=== PATIENT | female | born 1965 | race Two or more races ===

== ENCOUNTER 2016-09-09 12:08 | Emergency (ER) | payer MEDICAID | END 2016-09-09 13:20 | disposition left against medical advice (07) | LOC: EEVIPCON 12:08 | DX: Z53.21 Procedure and treatment not carried out due to patient leaving prior to being seen by health care provider (principal) ==

== ENCOUNTER 2016-11-16 10:15 | Inpatient (IN) | payer MEDICAID ==
[2016-11-16 10:39] LABS: % IMMATURE GRANULYOCYTES 0.2 % (0.0-1.1); ABSOLUTE IMMATURE GRANULOCYTES 0.01 10^3/uL (0.00-0.10); ADD DIFF? NO; ADD MORPH? NO; ADD SCAN? NO; ATYPICAL LYMPHOCYTE FLAG 30 (0-99); FRAGMENT RBC FLAG 0 (0-99); HEMATOCRIT 28.2 % (38.0-47.0); HEMOGLOBIN 9.6 g/dL (12.6-16.3); LEFT SHIFT FLG 0 (0-99); LIPEMIA HEMOLYSIS FLAG 90 (0-99); MEAN CELL HEMOGLOBIN 30.7 pg (27.9-34.1); MEAN CELL VOLUME 90.1 fL (81.5-99.8); MEAN PLATELET VOLUME 10.2 fL (8.7-11.7); PLATELET CLUMPS FLAG 20 (0-99); PLATELET COUNT 68 10^3/uL (150-400); RED BLOOD CELL COUNT 3.13 10^6/uL (4.18-5.33); RED CELL DISTRIBUTION WIDTH 16.6 % (11.5-15.2)
[2016-11-16 10:44] LABS: INR 1.5 (0.83-1.16); PROTIME(PATIENT) 18.1 SEC (12.0-15.0)
[2016-11-16 10:57] LABS: ALANINE AMINOTRANSFERASE 45 IU/L (9-52); ALBUMIN 2.5 g/dL (3.5-5.0); ALKALINE PHOSPHATASE 361 IU/L (38-126); ANION GAP 7 mEq/L (8-16); ASPARTATE AMINOTRANSFERASE 70 IU/L (14-46); BILIRUBIN,TOTAL 3.2 mg/dL (0.1-1.4); BILIRUBIN-CONJUGATED 1.8 mg/dL (0.0-0.5); BILIRUBIN-UNCONJUGATED 1.4 mg/dL (0.0-1.1); CALCIUM 8.1 mg/dL (8.5-10.4); CARBON DIOXIDE 20 mEq/l (22-31); CHLORIDE 108 mEq/L (97-110); CREATININE 0.5 mg/dL (0.6-1.0); GLOMERULAR FILTRATION RATE > 60; GLUCOSE 112 mg/dL (70-100); POTASSIUM 2.9 mEq/L (3.5-5.2); SODIUM 135 mEq/L (134-144); TOTAL PROTEIN 6.8 g/dL (6.3-8.2)
[2016-11-16] MEDS ORDERED: HYDROmorphONE/DILAUDID 1 MG/ML SYR IVP ONE (11:12)
--- NOTE | 2016-11-16 11:14 | EDPHY ---
H & P Time Seen by Provider: 11/16/16 10:32 HPI/ROS: Chief complaint. Abdominal pain HPI. 51-year-old female with abdominal pain and distention gradually worsening over the past several weeks. She has a history of pancreatitis and cirrhosis. Last paracentesis was 4 months ago. Denies fever, chest discomfort, trouble breathing. Pain in her abdomen is diffuse and feels like pressure and fullness. Hurts to walk. Patient also complains of burning on urination ROS Constitutional. no fever/chills, no weakness Eyes. no problems with vision ENT. no sore throat, no nasal drainage Cardiovascular. no chest pain Respiratory. no shortness of breath, no cough Abdominal. Abdominal pain and distension . no problems urinating MS. no calf pain/swelling, no neck/back pain, no joint pain Skin. no rash Lymph. no swollen glands Neuro. no headache, no dizziness, no difficulty walking or with speech Past Medical/Surgical History: Past medical history is significant for alcoholism, cirrhosis, ascites, hypertension, pancreatitis, hep C, seizure disorder Social History: Single, daily smoker, denies recent alcohol Smoking Status: Current every day smoker Physical Exam: General Appearance: Alert well-developed female moderate distress vital signs significant for heart rate 110 Eyes: Pupils equal and round no pallor or injection. ENT, Mouth: Mucous membranes are moist. Respiratory: There are no retractions, lungs are clear to auscultation. Cardiovascular: Regular rate and rhythm. Gastrointestinal: Abdomen is distended and diffusely tender. There is ascites. Normal bowel sounds. Neurological: Awake and alert, sensory and motor exams grossly normal. Skin: Warm and dry, no rashes. Musculoskeletal: Neck is supple nontender. Extremities symmetrical, full range of motion. Psychiatric: Patient is oriented X 3, there is no agitation. Constitutional: Initial Vital Signs Temperature (C) 36.8 C 11/16/16 10:27 Heart Rate 110 H 11/16/16 10:27 Respiratory Rate 18 11/16/16 10:27 Blood Pressure 175/109 H 11/16/16 10:27 O2 Sat (%) 98 11/16/16 10:27 O2 Delivery Mode Room Air Allergies/Adverse Reactions: codeine Allergy (Severe, Verified 09/09/16 12:44) Other-Enter Comments Home Medications: Medication Instructions Recorded Hydrocortisone 2.5% 1 xi TP BID 03/24/16 [Hydrocortisone 2.5% cream (*)] Zinc Oxide [Desitin] 1 xi TP .3-4X/DAY 03/24/16 Folic Acid [Folic Acid 1 MG (*)] 1 mg PO DAILY #0 tab 04/08/16 Multivitamins [Multivitamin (*)] 1 each PO DAILY #0 tab 04/08/16 Furosemide [Lasix 40 MG (*)] 40 mg PO BID@0900,1500 #0 tab 04/11/16 Spironolactone 100 mg PO DAILY #30 tablet 04/11/16 levETIRAcetam [Keppra 500 mg (*)] 500 mg PO BID #60 tab 04/11/16 Rifaximin [Xifaxan] 550 mg PO BID 04/13/16 Citalopram Hydrobromide [Celexa] 20 mg PO DAILY 11/16/16 Lactulose [Cephulac 20 gm/30 ml 20 gm PO Q2D@09,21 11/16/16 oral soln (*)] Omeprazole 40 mg PO DAILY 11/16/16 Potassium Cl [Klor-Con 20 meq (*)] 40 meq PO DAILY 11/16/16 Medical Decision Making Procedures: IV normal saline For magnesium sulfate intravenously. Potassium by mouth The wall I consulted and discussed the case with Dr. Grey, hospitalist, who agrees to the admission On re-evaluation the patient remained stable. She and I discussed lab results. We discussed treatment plan including recommendation for admission and paracentesis. She expresses understanding and agreement ED Course/Re-evaluation: I consulted and discussed case with Dr. Guthrie, hospitalist, who agrees to the admission Patient and I discussed laboratory results, treatment plan including need for admission and further evaluation. She expresses understanding and agreement Magnesium sulfate 1 g IV, potassium chloride by mouth Differential Diagnosis: Clearly the patient has ascites that is gradually worsening. She also has a urinary tract infection. Patient also has significant hypokalemia. - Data Points Laboratory Results: Laboratory Results 11/16/16 10:20 11/16/16 10:20 11/16/16 11/16/16 11/16/16 10:20 10:20 10:20 WBC RBC Hgb Hct MCV MCH MCHC RDW Plt Count MPV Neut % (Auto) Lymph % (Auto) [place] % (Auto) Eos % (Auto) Baso % (Auto) Nucleat RBC Rel Count Absolute Neuts (auto) Absolute Lymphs (auto) Absolute Monos (auto) Absolute Eos (auto) Absolute Basos (auto) Absolute Nucleated RBC Immature Gran % Immature Gran # PT INR APTT Sodium 135 mEq/L mEq/L (134-144) Potassium 2.9 mEq/L L mEq/L (3.5-5.2) Chloride 108 mEq/L mEq/L (97-110) Carbon Dioxide 20 mEq/l L mEq/l (22-31) Anion Gap 7 mEq/L L mEq/L (8-16) BUN 9 mg/dL mg/dL (7-23) Creatinine 0.5 mg/dL L mg/dL (0.6-1.0) Estimated GFR > 60 Glucose 112 mg/dL H mg/dL (70-100) Calcium 8.1 mg/dL L mg/dL (8.5-10.4) Magnesium 1.7 mg/dL mg/dL (1.6-2.3) Total Bilirubin 3.2 mg/dL H mg/dL (0.1-1.4) Conjugated Bilirubin 1.8 mg/dL H mg/dL (0.0-0.5) Unconjugated Bilirubin 1.4 mg/dL H mg/dL (0.0-1.1) AST 70 IU/L H IU/L (14-46) ALT 45 IU/L IU/L (9-52) Alkaline Phosphatase 361 IU/L H IU/L (38-126) Total Protein 6.8 g/dL g/dL (6.3-8.2) Albumin 2.5 g/dL L g/dL (3.5-5.0) Lipase 308.0 IU/L H IU/L (23-300) Ethyl Alcohol 24 mg/dL H mg/dL (0-10) 11/16/16 11/16/16 10:20 10:20 WBC 4.13 10^3/uL 10^3/uL (3.80-9.50) RBC 3.13 10^6/uL L 10^6/uL (4.18-5.33) Hgb 9.6 g/dL L g/dL (12.6-16.3) Hct 28.2 % L % (38.0-47.0) MCV 90.1 fL fL (81.5-99.8) MCH 30.7 pg pg (27.9-34.1) MCHC 34.0 g/dL g/dL (32.4-36.7) RDW 16.6 % H % (11.5-15.2) Plt Count 68 10^3/uL L 10^3/uL (150-400) MPV 10.2 fL fL (8.7-11.7) Neut % (Auto) 72.5 % % (39.3-74.2) Lymph % (Auto) 11.9 % L % (15.0-45.0) [place] % (Auto) 9.9 % % (4.5-13.0) Eos % (Auto) 4.8 % % (0.6-7.6) Baso % (Auto) 0.7 % % (0.3-1.7) Nucleat RBC Rel Count 0.0 % % (0.0-0.2) Absolute Neuts (auto) 2.99 10^3/uL 10^3/uL (1.70-6.50) Absolute Lymphs (auto) 0.49 10^3/uL L 10^3/uL (1.00-3.00) Absolute Monos (auto) 0.41 10^3/uL 10^3/uL (0.30-0.80) Absolute Eos (auto) 0.20 10^3/uL 10^3/uL (0.03-0.40) Absolute Basos (auto) 0.03 10^3/uL 10^3/uL (0.02-0.10) Absolute Nucleated RBC 0.00 10^3/uL 10^3/uL (0-0.01) Immature Gran % 0.2 % % (0.0-1.1) Immature Gran # 0.01 10^3/uL 10^3/uL (0.00-0.10) PT 18.1 SEC H SEC (12.0-15.0) INR 1.50 H (0.83-1.16) APTT 32.0 SEC SEC (23.0-38.0) Sodium Potassium Chloride Carbon Dioxide Anion Gap BUN Creatinine Estimated GFR Glucose Calcium Magnesium Total Bilirubin Conjugated Bilirubin Unconjugated Bilirubin AST ALT Alkaline Phosphatase Total Protein Albumin Lipase Ethyl Alcohol Medications Given: Discontinued Medications Hydromorphone HCl (Dilaudid) 1 mg IVP EDNOW ONE Stop: 11/16/16 11:13 Last Admin: 11/16/16 12:21 Dose: 0.5 mg Magnesium Sulfate/Dextrose (Magnesium Sulf 1 Gm (Premix)) 100 mls @ 100 mls/hr IV EDNOW ONE Stop: 11/16/16 12:29 Last Admin: 11/16/16 12:11 Dose: 100 mls Potassium Chloride (Klor Packets) 20 meq PO EDNOW ONE Stop: 11/16/16 11:31 Last Admin: 11/16/16 12:10 Dose: 20 meq Departure - Departure Disposition: [facility] Inpatient Acute Clinical Impression: Ascites Qualifiers: Ascites type: due to alcoholic cirrhosis Qualified Code(s): K70.31 - Alcoholic cirrhosis of liver with ascites Condition: Fair
[2016-11-16] MEDS ORDERED: POTASSIUM CL 20 MEQ PKT PO ONE (11:30)
[2016-11-16] MEDS ORDERED: MAGNESIUM SULF 1 GM/DEXTROSE 100 ML IV ONE (11:30)
[2016-11-16 11:31] LABS: ETHANOL SERUM 24 mg/dL (0-10)
[2016-11-16 12:31] LABS: COLOR AMBER; LEUKOCYTE ESTERASE,URINE 2+ (NEGATIVE); NITRITE,URINE POSITIVE (NEGATIVE)
[2016-11-16 12:36] LABS: BACTERIA 4+ /hpf (NONE SEEN); MUCUS 1+ /lpf (NONE-1+); RBC,URINE 50-182 /hpf (0-3); WBC,URINE 50-182 /hpf (0-3)
[2016-11-16] MEDS ORDERED: ZINC OXIDE TP SCH (13:15)
[2016-11-16] MEDS ORDERED: ONDANSETRON DISINTEGRATING 4 MG TAB PO PRN (13:47)
[2016-11-16] MEDS ORDERED: HYDROmorphONE/DILAUDID 1 MG/ML SYR IVP PRN (13:47)
[2016-11-16] MEDS ORDERED: ONDANSETRON 4 MG/2 ML VIAL IVP PRN (13:47)
[2016-11-16] MEDS ORDERED: oxyCODONE IR 5 MG TAB PO PRN (13:47)
[2016-11-16] MEDS ORDERED: NA BICARBONATE 50 MEQ/50 ML VIAL ONE (14:19)
[2016-11-16] MEDS: HYDROmorphONE/DILAUDID 2 MG TAB PO PRN ×2 (15:10→20:29)
--- NOTE | 2016-11-16 15:17 | GHP ---
[f rep st] HISTORY AND PHYSICAL DATE OF ADMISSION: 11/16/2016 CHIEF COMPLAINT: Abdominal pain. HISTORY OF PRESENT ILLNESS: The patient is a 51-year-old alcoholic with a history significant for a lcoholic liver disease and recurrent cirrhosis. She comes in with increasing abdominal pain for 2 d ays, associated with fevers and chills. She has had increasing abdominal girth over the past 2 shala hs, despite saying she has been compliant with all of her medications. She denies any chest pain. She has a little bit of shortness of breath due to her abdominal girth and some cough that has been present for 4 months. She denies any changes in her BM. She has had a little bit of urinary burnin g, but no back pain. She denies any new rash. No new joint pains. Her swelling is better than usu al on her lower extremities. No headache, vision, hearing, speech or swallowing issues. REVIEW OF SYSTEMS: A 10-point review of systems was done and is negative, except as stated in the H PI. PAST MEDICAL HISTORY: 1. Alcoholic cirrhosis. 2. Ongoing alcoholism with alcohol use. 3. History of SBP. 4. History of seizure disorder. 5. Pancytopenia secondary to alcohol use. 6. Depression. 7. PTSD. PAST SURGICAL HISTORY: Includes cholecystectomy, x5, appendectomy. FAMILY HISTORY: Mother with dementia. Father is . SOCIAL HISTORY: She is currently living with her mother but says this cannot last, and she is hopin g to move out and get housing. She walks with the use of a cane. She continues to drink but says h as cut out the hard liquor and only drinks beer occasionally. Despite having a positive alcohol lev el, she says her last beer was 2 days ago. She occasionally smokes tobacco and marijuana. She curr ently goes to the [facility] but plans on switching to [facility] with Dr. Casillas. CURRENT MEDICATIONS: Omeprazole, potassium, Keppra, spironolactone, , multivitamin, lactu lose, hydrocortisone cream, Lasix, folic acid, and citalopram. ALLERGIES: To codeine. PHYSICAL EXAMINATION: VITAL SIGNS: Afebrile. Heart rate 100. Blood pressure 151/94. Respiration s 18. She is 96% on room air. GENERAL: She is a very pleasant, 51-year-old non-white woman in no obvious distress. She is alert and oriented. HEENT: Sclerae slightly icteric. Pupils are equal. Extraocular movements intact. Mucous membranes are dry. NECK: Supple. She has a left EJ in. HE ART: Regular and tachycardic with a systolic murmur. LUNGS: Clear bilaterally, with decreased pedro luis ath sounds at the bases. ABDOMEN: Distended and bulging. She does have some scars on her abdomen and it is diffusely tender, without significant rebound or guarding. EXTREMITIES: Trace edema, paul ateral lower extremities. SKIN: Intact. No rash. MUSCULOSKELETAL: No joint deformities. No obv ious effusions. NEUROLOGIC: Her speech is fluent. She is moving all 4 extremities. LABORATORY DATA: CBC shows a white count of 4.1, hemoglobin 9.6, with a platelet count of 68. Chemistry: Sodium 135, potassium 2.9, chloride 108, 20, BUN 9, with a creatinine of 0.5. LFTs show a total bili of 3.2, AST of 70, with an ALT of 45, alk phos of 361. Troponin 308. Urinalysis does show pyuria and hematuria. ASSESSMENT AND PLAN: 51-year-old presents with abdominal pain, increasing ascites, as well as evide nce of urinary tract infection. 1. Abdominal pain, ascites, have to rule out spontaneous bacterial peritonitis: Will set her up fo r an ultrasound-guided paracentesis, both diagnostic and therapeutic. Will likely start her on empi bradley ceftriaxone after tap done. 2. Possible urinary tract infection causing symptoms: Will start her on ceftriaxone, culture urine . 3. Alcoholism: Patient states she has cut down but has not stopped. Will have ongoing discussions regarding complete abstinence. 4. Alcoholic cirrhosis: Continue her usual medications. She does not appear encephalopathic, and her fluid status, other than her ascites, is actually quite good. Continue her diuretics as prescri bed. 5. Seizure disorder: Continue Keppra. 6. Pancytopenia, fairly stable: Continue to monitor while she is here. 7. Depression: Continue her SSRI. 8. DVT prophylaxis: Will place SCDs. Patient's platelet count too low to start chemical prophylax is. Copy requested to: Dr. [facility] /[id number]/MODL
[2016-11-16 16:36] LABS: GLUCOSE, PERITONEAL FLUID 110 mg/dL (55-113)
[2016-11-16] MEDS: FUROSEMIDE 40 MG TAB PO SCH (16:41)
[2016-11-16] MEDS: ZINC OXIDE 56.7 GM OINTTUBE TP SCH ×2 (16:45→20:21)
[2016-11-16] MEDS ORDERED: diphenhydrAMINE 25 MG CAP PO ONE (20:04)
[2016-11-16] MEDS: RIFAXIMIN 550 MG TAB PO SCH (20:19)
[2016-11-16] MEDS: LACTULOSE 20 GM/30 ML UDCUP PO SCH (20:20)
[2016-11-16] MEDS: levETIRAcetam 500 MG TAB PO SCH (20:20)
[2016-11-16] MEDS: HYDROCORTISONE 2.5% 30 GM CRTUBE TP SCH (20:21)
[2016-11-17] MEDS: HYDROmorphONE/DILAUDID 2 MG TAB PO PRN ×3 (04:46→20:43)
[2016-11-17] MEDS: ZINC OXIDE 56.7 GM OINTTUBE TP SCH ×4 (04:50→22:16)
[2016-11-17 05:43] LABS: % IMMATURE GRANULYOCYTES 0.3 % (0.0-1.1); ABSOLUTE IMMATURE GRANULOCYTES 0.01 10^3/uL (0.00-0.10); ADD DIFF? NO; ADD MORPH? NO; ADD SCAN? NO; ATYPICAL LYMPHOCYTE FLAG 30 (0-99); FRAGMENT RBC FLAG 0 (0-99); HEMATOCRIT 29.7 % (38.0-47.0); HEMOGLOBIN 9.8 g/dL (12.6-16.3); LEFT SHIFT FLG 0 (0-99); LIPEMIA HEMOLYSIS FLAG 80 (0-99); MEAN CELL HEMOGLOBIN 30.9 pg (27.9-34.1); MEAN CELL VOLUME 93.7 fL (81.5-99.8); MEAN PLATELET VOLUME 9.9 fL (8.7-11.7); PLATELET CLUMPS FLAG 0 (0-99); PLATELET COUNT 65 10^3/uL (150-400); RED BLOOD CELL COUNT 3.17 10^6/uL (4.18-5.33); RED CELL DISTRIBUTION WIDTH 16.5 % (11.5-15.2)
[2016-11-17 05:49] LABS: ALANINE AMINOTRANSFERASE 43 IU/L (9-52); ALBUMIN 2.5 g/dL (3.5-5.0); ALKALINE PHOSPHATASE 319 IU/L (38-126); ANION GAP 8 mEq/L (8-16); ASPARTATE AMINOTRANSFERASE 67 IU/L (14-46); BILIRUBIN,TOTAL 3.1 mg/dL (0.1-1.4); CALCIUM 7.6 mg/dL (8.5-10.4); CARBON DIOXIDE 21 mEq/l (22-31); CHLORIDE 108 mEq/L (97-110); CREATININE 0.6 mg/dL (0.6-1.0); GLOMERULAR FILTRATION RATE > 60; GLUCOSE 125 mg/dL (70-100); POTASSIUM 2.8 mEq/L (3.5-5.2); SODIUM 137 mEq/L (134-144); TOTAL PROTEIN 6.7 g/dL (6.3-8.2)
[2016-11-17 05:56] LABS: BILIRUBIN-CONJUGATED 1.8 mg/dL (0.0-0.5); BILIRUBIN-UNCONJUGATED 1.3 mg/dL (0.0-1.1)
[2016-11-17] MEDS: CITALOPRAM 20 MG TAB PO SCH (08:48)
[2016-11-17] MEDS: FOLIC ACID 1 MG TAB PO SCH (08:49)
[2016-11-17] MEDS: SPIRONOLACTONE 100 MG TAB PO SCH (08:49)
[2016-11-17] MEDS: PANTOPRAZOLE SODIUM 40 MG TAB PO SCH (08:50)
[2016-11-17] MEDS: FUROSEMIDE 40 MG TAB PO SCH ×2 (08:50→16:19)
[2016-11-17] MEDS: RIFAXIMIN 550 MG TAB PO SCH ×2 (08:51→20:42)
[2016-11-17] MEDS: levETIRAcetam 500 MG TAB PO SCH ×2 (08:51→20:42)
[2016-11-17] MEDS: MULTIVITAMINS 1 EACH TAB PO SCH (08:51)
[2016-11-17] MEDS: POTASSIUM CL 20 MEQ TAB PO SCH (08:51)
[2016-11-17] MEDS: HYDROCORTISONE 2.5% 30 GM CRTUBE TP SCH ×2 (08:59→20:46)
[2016-11-17] MEDS ORDERED: NON-FORMULARY NEW DRUG (Omeprazole [Omeprazole] 40 MG) PO SCH (09:00)
[2016-11-17] MEDS ORDERED: CITALOPRAM HYDROBROMIDE 20 MG PO SCH (09:00)
[2016-11-17] MEDS ORDERED: ONDANSETRON DISINTEGRATING 4 MG TAB PO PRN (10:51)
[2016-11-17] MEDS ORDERED: ONDANSETRON 4 MG/2 ML VIAL IVP PRN (10:51)
--- NOTE | 2016-11-17 10:57 | HOSPPROG ---
Hospitalist Progress Note Assessment/Plan: 51-year-old with alcoholic liver disease and cirrhosis is admitted with abdominal pain and marked ascites. She is status post paracentesis and feels better. She also has evidence of a urinary tract infection. # abdominal pain: Status post paracentesis for 2400. No evidence of SBP on evaluation. * Continue diuretics * Follow symptoms # UTI patient with dysuria and pyuria. Will continue treatment and await cultures. # alcoholism with alcoholic liver disease: Has been compliant with her medications and decreased her alcohol intake but still continues to drink. * No evidence of withdrawal * Continue discussing abstinence # deconditioning, PT OT # DVT prophylaxis. Patient not great candidate due to severe thrombocytopenia Subjective: Patient feeling better today. Still with some mild abdominal pain. Objective: Vital Signs Temp Pulse Resp BP Pulse Ox 36.8 C 95 16 142/84 H 91 L 11/17/16 08:00 11/17/16 08:00 11/17/16 08:00 11/17/16 08:00 11/17/16 08:00 Microbiology 11/16/16 15:50 Gram Stain - Final Peritoneal Fluid - Aspirate Laboratory Results 11/17/16 04:45 11/17/16 05:15 11/16/16 11/17/16 11/18/16 05:59 05:59 05:59 Intake Total 750 Balance 750 PT 18.1 SEC (12.0-15.0) H 11/16/16 10:20 INR 1.50 (0.83-1.16) H 11/16/16 10:20 - Physical Exam Constitutional: chronically ill appearing, uncomfortable Eyes: PERRL, EOMI, icteric sclera Ears, Nose, Mouth, Throat: moist mucous membranes Cardiovascular: regular rate and rhythym, no murmur, rub, or gallop Respiratory: no respiratory distress, no rales or rhonchi, reduced air movement (Bases) Gastrointestinal: normoactive bowel sounds, ascites, distension, No rebound Genitourinary: no bladder fullness Skin: warm, normal color Musculoskeletal: generalized weakness Neurologic: AAOx3, No facial droop Psychiatric: interacting appropriately, not anxious ICD10 Worksheet Patient Problems: Problems Problem Status Onset Ascites Acute Abdominal pain Acute Alcohol intoxication Acute Alcohol abuse Acute SBP (spontaneous bacterial peritonitis) Acute Alcoholic cirrhosis of liver with ascites Acute Pancytopenia Acute Alcohol use Acute Hematochezia Acute Delirium tremens Acute
[2016-11-17] MEDS ORDERED: PROTOCOL MAGNESIUM 1 DOSE IV PRN (11:29)
[2016-11-17] MEDS ORDERED: PROTOCOL POTASSIUM 1 DOSE MISC PRN (11:29)
[2016-11-17] MEDS ORDERED: POTASSIUM CL 20 MEQ TAB PO ONE (11:30)
[2016-11-17 12:42] LABS: POTASSIUM 2.9 mEq/L (3.5-5.2)
[2016-11-17 18:26] LABS: POTASSIUM 3.7 mEq/L (3.5-5.2)
[2016-11-17] MEDS ORDERED: POTASSIUM CL 10 MEQ TAB PO ONE (19:29)
[2016-11-17] MEDS: LACTULOSE 20 GM/30 ML UDCUP PO SCH (20:43)
[2016-11-18] MEDS ORDERED: LORazepam 2 MG/ML INJ IVP ONE (02:00)
[2016-11-18] MEDS: ZINC OXIDE 56.7 GM OINTTUBE TP SCH ×4 (05:05→21:00)
[2016-11-18 06:25] LABS: HEMATOCRIT 26.7 % (38.0-47.0); HEMOGLOBIN 8.8 g/dL (12.6-16.3); MEAN CELL HEMOGLOBIN 30.4 pg (27.9-34.1); MEAN CELL VOLUME 92.4 fL (81.5-99.8); RED BLOOD CELL COUNT 2.89 10^6/uL (4.18-5.33); RED CELL DISTRIBUTION WIDTH 16.3 % (11.5-15.2)
[2016-11-18 06:55] LABS: ALANINE AMINOTRANSFERASE 46 IU/L (9-52); ALBUMIN 2.3 g/dL (3.5-5.0); ALKALINE PHOSPHATASE 271 IU/L (38-126); ANION GAP 9 mEq/L (8-16); ASPARTATE AMINOTRANSFERASE 70 IU/L (14-46); BILIRUBIN,TOTAL 3.1 mg/dL (0.1-1.4); CALCIUM 7.9 mg/dL (8.5-10.4); CARBON DIOXIDE 22 mEq/l (22-31); CHLORIDE 105 mEq/L (97-110); CREATININE 0.7 mg/dL (0.6-1.0); GLOMERULAR FILTRATION RATE > 60; GLUCOSE 92 mg/dL (70-100); MAGNESIUM 1.3 mg/dL (1.6-2.3); POTASSIUM 3.5 mEq/L (3.5-5.2); SODIUM 136 mEq/L (134-144); TOTAL PROTEIN 6.3 g/dL (6.3-8.2)
[2016-11-18 07:01] LABS: BILIRUBIN-UNCONJUGATED 1.1 mg/dL (0.0-1.1)
[2016-11-18] MEDS: POTASSIUM CL 20 MEQ TAB PO SCH (08:12)
[2016-11-18] MEDS: FUROSEMIDE 40 MG TAB PO SCH ×2 (08:12→15:13)
[2016-11-18] MEDS: RIFAXIMIN 550 MG TAB PO SCH ×2 (08:12→20:51)
[2016-11-18] MEDS: PANTOPRAZOLE SODIUM 40 MG TAB PO SCH (08:13)
[2016-11-18] MEDS: SPIRONOLACTONE 100 MG TAB PO SCH (08:13)
[2016-11-18] MEDS: MULTIVITAMINS 1 EACH TAB PO SCH (08:13)
[2016-11-18] MEDS: FOLIC ACID 1 MG TAB PO SCH (08:13)
[2016-11-18] MEDS: CITALOPRAM 20 MG TAB PO SCH (08:13)
[2016-11-18] MEDS: levETIRAcetam 500 MG TAB PO SCH ×2 (08:14→20:51)
[2016-11-18] MEDS: LACTULOSE 20 GM/30 ML UDCUP PO SCH ×2 (08:14→20:51)
[2016-11-18] MEDS: HYDROCORTISONE 2.5% 30 GM CRTUBE TP SCH ×2 (08:20→20:52)
[2016-11-18] MEDS ORDERED: POTASSIUM CL 10 MEQ TAB PO ONE ×2 (10:00→23:26)
[2016-11-18] MEDS ORDERED: MAGNESIUM SULF 2 GM/WATER 50 ML IV ONE (10:01)
[2016-11-18] MEDS: HYDROmorphONE/DILAUDID 2 MG TAB PO PRN ×3 (10:57→22:23)
--- NOTE | 2016-11-18 13:59 | HOSPPROG ---
Hospitalist Progress Note Assessment/Plan: 51-year-old with alcoholic liver disease and cirrhosis is admitted with acute on chronic abdominal pain and marked ascites. She is status post paracentesis and feels better. She also has evidence of a urinary tract infection on UA with dysuria. # abdominal pain: Status post paracentesis for 2400. No evidence of SBP on evaluation. * Continue diuretics * Follow symptoms # UTI patient with dysuria and pyuria. Culture positive for ESBL which is sensitive to Levaquin * DC ceftriaxone and start Levaquin * Will watch patient overnight to see if some of her abdominal complaints improved with actual treatment of her UTI * Place patient on precaution # alcoholism with alcoholic liver disease: Has been compliant with her medications and decreased her alcohol intake but still continues to drink. * No evidence of withdrawal * Continue discussing abstinence # deconditioning, PT OT # DVT prophylaxis. Patient not great candidate due to severe thrombocytopenia Disposition: Patient still quite weak in needs another day or 2 of hospitalization before discharge. Would also like to see if her symptoms improve Levaquin. Case management working with patient on disposition she will either go home to her mom's house or go to the [facility]. The patient is reluctant to go to her mom's house, unfortunately she needs home care and they will likely not provide that if she goes to the [facility]. Subjective: Still with some abdominal discomfort unclear how much of this is acute or chronic. Had some dysuria yesterday not as much today. Ambulating with a walker typically she only has a cane at home Objective: Vital Signs Temp Pulse Resp BP Pulse Ox 36.6 C 91 14 135/80 H 96 11/18/16 11:09 11/18/16 11:09 11/18/16 11:09 11/18/16 11:09 11/18/16 11:09 Microbiology 11/16/16 15:50 Gram Stain - Final Peritoneal Fluid - Aspirate Laboratory Results 11/18/16 04:50 11/18/16 04:50 11/17/16 11/18/16 11/19/16 05:59 05:59 05:59 Intake Total 750 236 Balance 750 236 PT 18.1 SEC (12.0-15.0) H 11/16/16 10:20 INR 1.50 (0.83-1.16) H 11/16/16 10:20 - Physical Exam Constitutional: chronically ill appearing, uncomfortable Eyes: PERRL, anicteric sclera, EOMI Ears, Nose, Mouth, Throat: moist mucous membranes, ears appear normal Cardiovascular: regular rate and rhythym, no murmur, rub, or gallop Respiratory: no respiratory distress, no rales or rhonchi, clear to auscultation , reduced air movement (Bases) Gastrointestinal: normoactive bowel sounds, ascites, distension Genitourinary: no bladder fullness Skin: warm, No normal color (Lesa) Musculoskeletal: normal joint ROM, no joint effusions, generalized weakness Neurologic: AAOx3 Psychiatric: interacting appropriately, not anxious, not encephalopathic ICD10 Worksheet Patient Problems: Problems Problem Status Onset Ascites Acute Abdominal pain Acute Alcohol intoxication Acute Alcohol abuse Acute SBP (spontaneous bacterial peritonitis) Acute Alcoholic cirrhosis of liver with ascites Acute Pancytopenia Acute Alcohol use Acute Hematochezia Acute Delirium tremens Acute
[2016-11-18 17:44] LABS: POTASSIUM 3.6 mEq/L (3.5-5.2)
[2016-11-19] MEDS: HYDROmorphONE/DILAUDID 2 MG TAB PO PRN ×3 (02:30→14:42)
[2016-11-19 05:52] LABS: MAGNESIUM 1.5 mg/dL (1.6-2.3)
[2016-11-19] MEDS: levETIRAcetam 500 MG TAB PO SCH ×2 (08:34→21:48)
[2016-11-19] MEDS: FOLIC ACID 1 MG TAB PO SCH (08:35)
[2016-11-19] MEDS: ZINC OXIDE 56.7 GM OINTTUBE TP SCH ×4 (08:35→22:01)
[2016-11-19] MEDS: CITALOPRAM 20 MG TAB PO SCH (08:35)
[2016-11-19] MEDS: FUROSEMIDE 40 MG TAB PO SCH ×2 (08:36→14:36)
[2016-11-19] MEDS: SPIRONOLACTONE 100 MG TAB PO SCH (08:37)
[2016-11-19] MEDS: PANTOPRAZOLE SODIUM 40 MG TAB PO SCH (08:37)
[2016-11-19] MEDS: MULTIVITAMINS 1 EACH TAB PO SCH (08:37)
[2016-11-19] MEDS: RIFAXIMIN 550 MG TAB PO SCH ×2 (08:40→21:48)
[2016-11-19] MEDS: POTASSIUM CL 20 MEQ TAB PO SCH (08:41)
[2016-11-19] MEDS: HYDROCORTISONE 2.5% 30 GM CRTUBE TP SCH ×2 (08:42→22:01)
[2016-11-19] MEDS ORDERED: MAGNESIUM SULF 1 GM/DEXTROSE 100 ML IV ONE (09:00)
--- NOTE | 2016-11-19 17:11 | HOSPPROG ---
Hospitalist Progress Note Assessment/Plan: 51-year-old with alcoholic liver disease and cirrhosis is admitted with acute on chronic abdominal pain and marked ascites. She is status post paracentesis and feels better. She also has evidence of a urinary tract infection on UA with dysuria. # abdominal pain- Status post paracentesis for 2400. No evidence of SBP on evaluation. most recent CT abdomen( personally reviewed and interpreted) show hemorrhoids and splenomegaly- sequela of portal hypertension - Continue diuretics - continue antibiotics # acute ESBL UTI- patient with dysuria and pyuria. Culture positive for ESBL which is sensitive to Levaquin initially treated with ceftriaxone - cont Levaquin - continue isolation # thrombocytopenia- platelet count 55- no clinical signs of bleeding - continue to monitor # alcoholism with alcoholic liver disease: Has been compliant with her medications and decreased her alcohol intake but still continues to drink. - No evidence of withdrawal - Continue discussing abstinence # deconditioning, PT OT- oxygen saturations 95% on room air # DVT prophylaxis. Patient not great candidate due to severe thrombocytopenia #Disposition- if symptoms improve overnight patient would be candidate for disposition I have discussed the case with case management- they are actively investigating disposition options including long-term placement Subjective: stomach upset Objective: Vital Signs Temp Pulse Resp BP Pulse Ox 37.7 C 92 12 115/76 93 11/19/16 15:53 11/19/16 15:53 11/19/16 15:53 11/19/16 15:53 11/19/16 15:53 Microbiology 11/16/16 15:50 Gram Stain - Final Peritoneal Fluid - Aspirate Body Fluid Culture - Final Laboratory Results 11/18/16 04:50 11/19/16 05:17 11/18/16 11/19/16 11/20/16 05:59 05:59 05:59 Intake Total 236 1436 Balance 236 1436 PT 18.1 SEC (12.0-15.0) H 11/16/16 10:20 INR 1.50 (0.83-1.16) H 11/16/16 10:20 - Physical Exam Constitutional: chronically ill appearing Eyes: anicteric sclera Ears, Nose, Mouth, Throat: dry mucous membranes Cardiovascular: regular rate and rhythym Respiratory: no respiratory distress Gastrointestinal: normoactive bowel sounds, soft, non-tender abdomen Genitourinary: no bladder fullness Skin: warm, normal color Musculoskeletal: No asymmetric calves Neurologic: AAOx3 Psychiatric: not encephalopathic Lymph, Heme, Immunologic: no cervical LAD ICD10 Worksheet Patient Problems: Problems Problem Status Onset Ascites Acute Abdominal pain Acute Alcohol abuse Acute Alcohol intoxication Acute Alcohol use Acute Alcoholic cirrhosis of liver with ascites Acute Delirium tremens Acute Hematochezia Acute Pancytopenia Acute SBP (spontaneous bacterial peritonitis) Acute
[2016-11-19 20:51] LABS: POTASSIUM 3.5 mEq/L (3.5-5.2)
[2016-11-19] MEDS ORDERED: POTASSIUM CL 10 MEQ TAB PO ONE (21:44)
[2016-11-20 05:13] LABS: ANION GAP 6 mEq/L (8-16); CALCIUM 7.8 mg/dL (8.5-10.4); CARBON DIOXIDE 28 mEq/l (22-31); CHLORIDE 97 mEq/L (97-110); CREATININE 0.6 mg/dL (0.6-1.0); GLOMERULAR FILTRATION RATE > 60; GLUCOSE 109 mg/dL (70-100); MAGNESIUM 1.5 mg/dL (1.6-2.3); POTASSIUM 3.7 mEq/L (3.5-5.2); SODIUM 131 mEq/L (134-144)
[2016-11-20] MEDS: ZINC OXIDE 56.7 GM OINTTUBE TP SCH ×4 (07:04→22:14)
[2016-11-20] MEDS: MULTIVITAMINS 1 EACH TAB PO SCH (08:15)
[2016-11-20] MEDS: POTASSIUM CL 20 MEQ TAB PO SCH (08:15)
[2016-11-20] MEDS: levETIRAcetam 500 MG TAB PO SCH ×2 (08:15→21:14)
[2016-11-20] MEDS: CITALOPRAM 20 MG TAB PO SCH (08:15)
[2016-11-20] MEDS: RIFAXIMIN 550 MG TAB PO SCH ×2 (08:15→21:14)
[2016-11-20] MEDS: PANTOPRAZOLE SODIUM 40 MG TAB PO SCH (08:15)
[2016-11-20] MEDS: SPIRONOLACTONE 100 MG TAB PO SCH (08:16)
[2016-11-20] MEDS: FOLIC ACID 1 MG TAB PO SCH (08:16)
[2016-11-20] MEDS: FUROSEMIDE 40 MG TAB PO SCH ×2 (08:16→16:57)
[2016-11-20] MEDS: LACTULOSE 20 GM/30 ML UDCUP PO SCH ×2 (08:16→21:14)
[2016-11-20] MEDS: HYDROmorphONE/DILAUDID 2 MG TAB PO PRN ×2 (08:26→19:50)
[2016-11-20] MEDS: HYDROCORTISONE 2.5% 30 GM CRTUBE TP SCH ×2 (10:03→22:14)
[2016-11-20] MEDS ORDERED: POTASSIUM CL 10 MEQ TAB ONE (12:09)
[2016-11-20] MEDS ORDERED: MAGNESIUM SULF 1 GM/DEXTROSE 100 ML IV ONE (13:39)
--- NOTE | 2016-11-20 15:24 | HOSPPROG ---
Hospitalist Progress Note Assessment/Plan: 51-year-old with alcoholic liver disease and cirrhosis is admitted with acute on chronic abdominal pain and marked ascites. She is status post paracentesis and feels better. She also has evidence of a urinary tract infection on UA with dysuria. # abdominal pain- Status post paracentesis for 2400. No evidence of SBP on evaluation. most - sequela of portal hypertension - Continue diuretics at current doses - continue antibiotics # acute ESBL UTI- patient with dysuria and pyuria. Culture positive for ESBL which is sensitive to Levaquin initially treated with ceftriaxone - recent CT abdomen (personally reviewed and interpreted) show normal renal anatomy - cont Levaquin - continue isolation # chronic thrombocytopenia- platelet count 55-68 since admission no clinical signs of bleeding - continue to monitor # alcoholism with alcoholic liver disease: Has been compliant with her medications and decreased her alcohol intake but still continues to drink. - No evidence of withdrawal - Continue discussing abstinence - continue diuretics rifaximin # deconditioning, PT OT- oxygen saturations 92% on room air # DVT prophylaxis. Patient not great candidate due to severe thrombocytopenia # Disposition- patient has had multiple recent hospitalizations- working on long-term placement I have discussed the case with case management- we have initiated the process for long-term placement as the patient would benefit from higher level of support for safety Subjective: abdominal pain persists Objective: Vital Signs Temp Pulse Resp BP Pulse Ox 37.5 C 94 16 106/58 L 92 11/20/16 10:50 11/20/16 10:50 11/20/16 10:50 11/20/16 10:50 11/20/16 10:50 Microbiology 11/16/16 15:50 Gram Stain - Final Peritoneal Fluid - Aspirate Body Fluid Culture - Final Laboratory Results 11/18/16 04:50 11/20/16 04:30 11/19/16 11/20/16 11/21/16 05:59 05:59 05:59 Intake Total 1436 500 990 Output Total 700 Balance 1436 500 290 PT 18.1 SEC (12.0-15.0) H 11/16/16 10:20 INR 1.50 (0.83-1.16) H 11/16/16 10:20 - Physical Exam Eyes: anicteric sclera Ears, Nose, Mouth, Throat: dry mucous membranes Cardiovascular: regular rate and rhythym Respiratory: no respiratory distress, no rales or rhonchi Gastrointestinal: normoactive bowel sounds Genitourinary: no bladder fullness Skin: warm, normal color Musculoskeletal: No asymmetric calves Neurologic: AAOx3 Psychiatric: interacting appropriately, not anxious Lymph, Heme, Immunologic: no cervical LAD ICD10 Worksheet Patient Problems: Problems Problem Status Onset Ascites Acute Abdominal pain Acute Alcohol abuse Acute Alcohol intoxication Acute Alcohol use Acute Alcoholic cirrhosis of liver with ascites Acute Delirium tremens Acute Hematochezia Acute Pancytopenia Acute SBP (spontaneous bacterial peritonitis) Acute
[2016-11-20 18:45] LABS: POTASSIUM 3.6 mEq/L (3.5-5.2)
[2016-11-20] MEDS ORDERED: POTASSIUM CL 20 MEQ TAB PO ONE (21:20)
[2016-11-21 05:00] LABS: ANION GAP 5 mEq/L (8-16); CALCIUM 7.9 mg/dL (8.5-10.4); CARBON DIOXIDE 33 mEq/l (22-31); CHLORIDE 98 mEq/L (97-110); CREATININE 0.7 mg/dL (0.6-1.0); GLOMERULAR FILTRATION RATE > 60; GLUCOSE 116 mg/dL (70-100); MAGNESIUM 1.6 mg/dL (1.6-2.3); POTASSIUM 3.9 mEq/L (3.5-5.2); SODIUM 136 mEq/L (134-144)
[2016-11-21] MEDS: ZINC OXIDE 56.7 GM OINTTUBE TP SCH ×4 (05:38→20:00)
[2016-11-21] MEDS: RIFAXIMIN 550 MG TAB PO SCH ×2 (09:14→19:54)
[2016-11-21] MEDS: FOLIC ACID 1 MG TAB PO SCH (09:14)
[2016-11-21] MEDS: MULTIVITAMINS 1 EACH TAB PO SCH (09:14)
[2016-11-21] MEDS: CITALOPRAM 20 MG TAB PO SCH (09:14)
[2016-11-21] MEDS: FUROSEMIDE 40 MG TAB PO SCH ×2 (09:14→15:20)
[2016-11-21] MEDS: PANTOPRAZOLE SODIUM 40 MG TAB PO SCH (09:14)
[2016-11-21] MEDS: SPIRONOLACTONE 100 MG TAB PO SCH (09:14)
[2016-11-21] MEDS: levETIRAcetam 500 MG TAB PO SCH ×2 (09:15→19:55)
[2016-11-21] MEDS: POTASSIUM CL 20 MEQ TAB PO SCH (09:15)
[2016-11-21] MEDS: HYDROCORTISONE 2.5% 30 GM CRTUBE TP SCH ×2 (09:17→20:00)
[2016-11-21] MEDS: HYDROmorphONE/DILAUDID 2 MG TAB PO PRN ×3 (10:29→19:55)
[2016-11-21] MEDS: MAGNESIUM OXIDE 400 MG TAB PO SCH (10:29)
--- NOTE | 2016-11-21 14:41 | HOSPPROG ---
Hospitalist Progress Note Assessment/Plan: 51-year-old with alcoholic liver disease and cirrhosis is admitted with acute on chronic abdominal pain and marked ascites. She is status post paracentesis and feels better. She also has evidence of a urinary tract infection on UA with dysuria. # Acute mild contraction alkalosis - recheck BMP in am - may need to decrease diuretic dosing if worsens # abdominal pain- Status post paracentesis for 2400. No evidence of SBP on evaluation. most - sequela of portal hypertension - Continue diuretics at current doses - continue antibiotics # acute ESBL UTI- patient with dysuria and pyuria. Culture positive for ESBL which is sensitive to Levaquin initially treated with ceftriaxone - recent CT abdomen (personally reviewed and interpreted) show normal renal anatomy - cont Levaquin - continue isolation # chronic thrombocytopenia- platelet count 55-68 since admission no clinical signs of bleeding - continue to monitor # alcoholism with alcoholic liver disease: Has been compliant with her medications and decreased her alcohol intake but still continues to drink. - No evidence of withdrawal - Continue discussing abstinence - continue diuretics rifaximin # deconditioning, PT OT- oxygen saturations 93% on room air # DVT prophylaxis. Patient not great candidate due to severe thrombocytopenia # Disposition- patient has had multiple recent hospitalizations- working on long-term placement I have discussed the case with case management- working on moth exterminator placement - pt remains medically stable Subjective: abdomen discomfort is stable Objective: Vital Signs Temp Pulse Resp BP Pulse Ox 36.9 C 81 18 108/64 93 11/21/16 11:17 11/21/16 11:17 11/21/16 11:17 11/21/16 11:17 11/21/16 11:17 Laboratory Results 11/18/16 04:50 11/21/16 04:33 11/20/16 11/21/16 11/22/16 05:59 05:59 05:59 Intake Total 500 990 300 Output Total 1400 700 Balance 500 -410 -400 PT 18.1 SEC (12.0-15.0) H 11/16/16 10:20 INR 1.50 (0.83-1.16) H 11/16/16 10:20 - Physical Exam Constitutional: chronically ill appearing Eyes: anicteric sclera Ears, Nose, Mouth, Throat: dry mucous membranes Cardiovascular: regular rate and rhythym Respiratory: no respiratory distress, no rales or rhonchi Gastrointestinal: normoactive bowel sounds, tenderness, distension, No guarding , No rebound Genitourinary: no bladder fullness Skin: warm Musculoskeletal: No asymmetric calves Neurologic: AAOx3 Psychiatric: interacting appropriately Lymph, Heme, Immunologic: no cervical LAD ICD10 Worksheet Patient Problems: Problems Problem Status Onset Ascites Acute Abdominal pain Acute Alcohol abuse Acute Alcohol intoxication Acute Alcohol use Acute Alcoholic cirrhosis of liver with ascites Acute Delirium tremens Acute Hematochezia Acute Pancytopenia Acute SBP (spontaneous bacterial peritonitis) Acute
[2016-11-21] MEDS: diphenhydrAMINE 25 MG CAP PO PRN (17:23)
[2016-11-22] MEDS: HYDROmorphONE/DILAUDID 2 MG TAB PO PRN ×5 (04:21→21:58)
[2016-11-22] MEDS: ZINC OXIDE 56.7 GM OINTTUBE TP SCH ×4 (04:21→20:21)
[2016-11-22 06:14] LABS: ANION GAP 6 mEq/L (8-16); CALCIUM 7.8 mg/dL (8.5-10.4); CARBON DIOXIDE 31 mEq/l (22-31); CHLORIDE 96 mEq/L (97-110); CREATININE 0.7 mg/dL (0.6-1.0); GLOMERULAR FILTRATION RATE > 60; GLUCOSE 118 mg/dL (70-100); POTASSIUM 3.5 mEq/L (3.5-5.2); SODIUM 133 mEq/L (134-144)
[2016-11-22] MEDS: CITALOPRAM 20 MG TAB PO SCH (09:37)
[2016-11-22] MEDS: FUROSEMIDE 40 MG TAB PO SCH ×2 (09:38→15:06)
[2016-11-22] MEDS: PANTOPRAZOLE SODIUM 40 MG TAB PO SCH (09:38)
[2016-11-22] MEDS: RIFAXIMIN 550 MG TAB PO SCH ×2 (09:38→20:17)
[2016-11-22] MEDS: MULTIVITAMINS 1 EACH TAB PO SCH (09:38)
[2016-11-22] MEDS: LACTULOSE 20 GM/30 ML UDCUP PO SCH ×2 (09:38→20:17)
[2016-11-22] MEDS: FOLIC ACID 1 MG TAB PO SCH (09:38)
[2016-11-22] MEDS: MAGNESIUM OXIDE 400 MG TAB PO SCH (09:39)
[2016-11-22] MEDS: SPIRONOLACTONE 100 MG TAB PO SCH (09:39)
[2016-11-22] MEDS: POTASSIUM CL 20 MEQ TAB PO SCH (09:39)
[2016-11-22] MEDS: diphenhydrAMINE 25 MG CAP PO PRN ×2 (09:47→18:08)
[2016-11-22] MEDS: HYDROCORTISONE 2.5% 30 GM CRTUBE TP SCH ×2 (10:22→20:21)
[2016-11-22] MEDS: levETIRAcetam 500 MG TAB PO SCH ×2 (10:24→20:18)
--- NOTE | 2016-11-22 13:13 | HOSPPROG ---
Hospitalist Progress Note Assessment/Plan: 51-year-old with alcoholic liver disease and cirrhosis is admitted with acute on chronic abdominal pain and marked ascites. She is status post paracentesis and feels better. She also has evidence of a urinary tract infection on UA with dysuria. # Acute mild contraction alkalosis - slightly improved this am - - will keep diuretic doses the same # abdominal pain- Status post paracentesis for 2400 on admit- No evidence of SBP on evaluation. most - sequela of portal hypertension - Continue diuretics at current doses - continue antibiotics # acute ESBL UTI- patient with dysuria and pyuria. Culture positive for ESBL which is sensitive to Levaquin initially treated with ceftriaxone - recent CT abdomen (personally reviewed and interpreted) show normal renal anatomy - cont Levaquin - continue isolation # chronic thrombocytopenia- platelet count 55-68 since admission no clinical signs of bleeding - continue to monitor # alcoholism with alcoholic liver disease: Has been compliant with her medications and decreased her alcohol intake but still continues to drink. - No evidence of withdrawal - Continue discussing abstinence - continue diuretics rifaximin # deconditioning, PT OT- oxygen saturations 93% on room air # DVT prophylaxis. Patient not great candidate due to severe thrombocytopenia # Disposition- patient has had multiple recent hospitalizations- working on long-term placement I have discussed the case with case management- continuing to work on snf placement - [place] care will come to eval soon Subjective: tolerating PO Objective: Vital Signs Temp Pulse Resp BP Pulse Ox 36.7 C 80 18 111/66 95 11/22/16 11:35 11/22/16 11:35 11/22/16 11:35 11/22/16 11:35 11/22/16 11:35 Laboratory Results 11/18/16 04:50 11/22/16 04:52 11/21/16 11/22/16 11/23/16 05:59 05:59 05:59 Intake Total 990 580 280 Output Total 1400 2350 450 Balance -410 -1770 -170 PT 18.1 SEC (12.0-15.0) H 11/16/16 10:20 INR 1.50 (0.83-1.16) H 11/16/16 10:20 - Physical Exam Constitutional: chronically ill appearing Eyes: anicteric sclera Ears, Nose, Mouth, Throat: moist mucous membranes Cardiovascular: regular rate and rhythym Respiratory: no respiratory distress, no rales or rhonchi Gastrointestinal: normoactive bowel sounds, distension Genitourinary: no bladder fullness Skin: warm, normal color Musculoskeletal: No asymmetric calves Neurologic: AAOx3 Psychiatric: No encephalopathic Lymph, Heme, Immunologic: no cervical LAD ICD10 Worksheet Patient Problems: Problems Problem Status Onset Ascites Acute Abdominal pain Acute Alcohol abuse Acute Alcohol intoxication Acute Alcohol use Acute Alcoholic cirrhosis of liver with ascites Acute Delirium tremens Acute Hematochezia Acute Pancytopenia Acute SBP (spontaneous bacterial peritonitis) Acute
[2016-11-23] MEDS: ZINC OXIDE 56.7 GM OINTTUBE TP SCH ×5 (05:19→19:50)
[2016-11-23] MEDS: diphenhydrAMINE 25 MG CAP PO PRN ×2 (07:27→16:42)
[2016-11-23] MEDS: HYDROmorphONE/DILAUDID 2 MG TAB PO PRN ×4 (07:27→21:17)
[2016-11-23] MEDS: CITALOPRAM 20 MG TAB PO SCH (08:48)
[2016-11-23] MEDS: levETIRAcetam 500 MG TAB PO SCH ×2 (08:48→19:43)
[2016-11-23] MEDS: FOLIC ACID 1 MG TAB PO SCH (08:48)
[2016-11-23] MEDS: PANTOPRAZOLE SODIUM 40 MG TAB PO SCH (08:48)
[2016-11-23] MEDS: MAGNESIUM OXIDE 400 MG TAB PO SCH (08:49)
[2016-11-23] MEDS: RIFAXIMIN 550 MG TAB PO SCH ×2 (08:49→19:43)
[2016-11-23] MEDS: MULTIVITAMINS 1 EACH TAB PO SCH (08:49)
[2016-11-23] MEDS: POTASSIUM CL 20 MEQ TAB PO SCH (08:50)
[2016-11-23] MEDS: FUROSEMIDE 40 MG TAB PO SCH ×2 (08:50→15:38)
[2016-11-23] MEDS: SPIRONOLACTONE 100 MG TAB PO SCH (08:50)
[2016-11-23] MEDS: HYDROCORTISONE 2.5% 30 GM CRTUBE TP SCH ×3 (09:29→19:50)
--- NOTE | 2016-11-23 13:33 | HOSPPROG ---
Hospitalist Progress Note Assessment/Plan: 51-year-old with alcoholic liver disease and cirrhosis is admitted with acute on chronic abdominal pain and marked ascites. She is status post paracentesis and feels better. She also has evidence of a urinary tract infection on UA with dysuria. # Acute mild contraction alkalosis - fluctuating - will keep diuretic doses the same # abdominal pain- Status post paracentesis for 2400 on admit- No evidence of SBP on evaluation. with increasing abd distention and pain overnight - US guided paracentesis for comfort - Continue diuretics at current doses - continue antibiotics # acute ESBL UTI- patient with dysuria and pyuria. Culture positive for ESBL which is sensitive to Levaquin initially treated with ceftriaxone - recent CT abdomen (personally reviewed and interpreted) show normal renal anatomy - cont Levaquin day 02/11 - continue isolation # chronic thrombocytopenia- platelet count 55-68 since admission no clinical signs of bleeding - continue to monitor # alcoholism with alcoholic liver disease: Has been compliant with her medications and decreased her alcohol intake but still continues to drink. - No evidence of withdrawal - Continue discussing abstinence - continue diuretics rifaximin # deconditioning, PT OT- oxygen saturations 93% on room air # DVT prophylaxis. Patient not great candidate due to severe thrombocytopenia # Disposition- patient has had multiple recent hospitalizations- working on long-term placement I have discussed the case with RN - will discuss tap with RN as pt much more uncomfortable overnight Subjective: abd pain worse Objective: Vital Signs Temp Pulse Resp BP Pulse Ox 36.8 C 86 16 112/58 L 93 11/23/16 12:00 11/23/16 12:00 11/23/16 12:00 11/23/16 12:00 11/23/16 12:00 Laboratory Results 11/18/16 04:50 11/22/16 04:52 11/22/16 11/23/16 11/24/16 05:59 05:59 05:59 Intake Total 580 920 Output Total 2350 1350 Balance -1770 -430 PT 18.1 SEC (12.0-15.0) H 11/16/16 10:20 INR 1.50 (0.83-1.16) H 11/16/16 10:20 - Physical Exam Constitutional: chronically ill appearing Eyes: anicteric sclera Ears, Nose, Mouth, Throat: moist mucous membranes Cardiovascular: regular rate and rhythym Respiratory: no respiratory distress, no rales or rhonchi Gastrointestinal: normoactive bowel sounds, soft, non-tender abdomen Genitourinary: no bladder fullness Skin: warm, normal color Musculoskeletal: No asymmetric calves Neurologic: AAOx3 Psychiatric: interacting appropriately, not anxious Lymph, Heme, Immunologic: no cervical LAD ICD10 Worksheet Patient Problems: Problems Problem Status Onset Ascites Acute Abdominal pain Acute Alcohol abuse Acute Alcohol intoxication Acute Alcohol use Acute Alcoholic cirrhosis of liver with ascites Acute Delirium tremens Acute Hematochezia Acute Pancytopenia Acute SBP (spontaneous bacterial peritonitis) Acute
[2016-11-24] MEDS: ZINC OXIDE 56.7 GM OINTTUBE TP SCH ×4 (05:08→22:45)
[2016-11-24] MEDS: diphenhydrAMINE 25 MG CAP PO PRN ×2 (05:21→18:11)
[2016-11-24] MEDS: POTASSIUM CL 20 MEQ TAB PO SCH (08:17)
[2016-11-24] MEDS: RIFAXIMIN 550 MG TAB PO SCH ×2 (08:18→22:45)
[2016-11-24] MEDS: levETIRAcetam 500 MG TAB PO SCH ×2 (08:19→22:43)
[2016-11-24] MEDS: PANTOPRAZOLE SODIUM 40 MG TAB PO SCH (08:19)
[2016-11-24] MEDS: CITALOPRAM 20 MG TAB PO SCH (08:19)
[2016-11-24] MEDS: SPIRONOLACTONE 100 MG TAB PO SCH (08:19)
[2016-11-24] MEDS: MULTIVITAMINS 1 EACH TAB PO SCH (08:19)
[2016-11-24] MEDS: HYDROmorphONE/DILAUDID 2 MG TAB PO PRN ×4 (08:19→22:46)
[2016-11-24] MEDS: FOLIC ACID 1 MG TAB PO SCH (08:19)
[2016-11-24] MEDS: FUROSEMIDE 40 MG TAB PO SCH ×2 (08:19→15:34)
[2016-11-24] MEDS: MAGNESIUM OXIDE 400 MG TAB PO SCH (08:19)
[2016-11-24] MEDS: LACTULOSE 20 GM/30 ML UDCUP PO SCH ×2 (08:20→22:45)
[2016-11-24] MEDS: HYDROCORTISONE 2.5% 30 GM CRTUBE TP SCH ×2 (08:22→22:46)
--- NOTE | 2016-11-24 08:41 | HOSPPROG ---
Hospitalist Progress Note Assessment/Plan: #Acutely decompensated alcoholic cirrhosis: s/p 2.4L paracentesis on admit. Negative for SBP. Cont diuretics #Abd pain: U/S yesterday with minimal ascites #ESBL UTI: day 03/13 Levaquin today #Chronic thrombocytopenia: stable. No e/o bleeding #Umbilical hernia: new per patient. Easily reduced #Alcohol abuse: still drinking, but less #Social issues: Medicaid to evaluate her today for SNF vs. rehab #Metabolic alkalosis: due to contraction. Cont diuretics, repeat BMP in morning #DVT px: ambulating #Disp: warrants inpt admission for monitored diuresis Subjective: new "bump" in umbilicus Objective: Vital Signs Temp Pulse Resp BP Pulse Ox 36.8 C 81 17 107/65 94 11/24/16 07:47 11/24/16 07:47 11/24/16 07:47 11/24/16 07:47 11/24/16 07:47 Laboratory Results 11/18/16 04:50 11/22/16 04:52 11/23/16 11/24/16 11/25/16 05:59 05:59 05:59 Intake Total 920 240 Output Total 1350 125 Balance -430 115 PT 18.1 SEC (12.0-15.0) H 11/16/16 10:20 INR 1.50 (0.83-1.16) H 11/16/16 10:20 - Physical Exam Constitutional: chronically ill appearing Eyes: PERRL Ears, Nose, Mouth, Throat: moist mucous membranes, hearing normal Cardiovascular: regular rate and rhythym, edema (+2-3 LE edema) Respiratory: no respiratory distress, other (few crackles at bases) Gastrointestinal: distension, other (small umbilical hernia, easily reduced) Skin: warm Musculoskeletal: full muscle strength Neurologic: AAOx3 Psychiatric: interacting appropriately ICD10 Worksheet Patient Problems: Problems Problem Status Onset Ascites Acute Abdominal pain Acute Alcohol abuse Acute Alcohol intoxication Acute Alcohol use Acute Alcoholic cirrhosis of liver with ascites Acute Delirium tremens Acute Hematochezia Acute Pancytopenia Acute SBP (spontaneous bacterial peritonitis) Acute
[2016-11-24 10:28] LABS: ANION GAP 5 mEq/L (8-16); CALCIUM 8.3 mg/dL (8.5-10.4); CARBON DIOXIDE 32 mEq/l (22-31); CHLORIDE 99 mEq/L (97-110); CREATININE 0.7 mg/dL (0.6-1.0); GLOMERULAR FILTRATION RATE > 60; GLUCOSE 118 mg/dL (70-100); POTASSIUM 3.5 mEq/L (3.5-5.2); SODIUM 136 mEq/L (134-144)
[2016-11-25] MEDS: ZINC OXIDE 56.7 GM OINTTUBE TP SCH ×2 (05:26→13:50)
[2016-11-25] MEDS: diphenhydrAMINE 25 MG CAP PO PRN (05:26)
[2016-11-25] MEDS: HYDROmorphONE/DILAUDID 2 MG TAB PO PRN (05:26)
[2016-11-25 05:47] LABS: ANION GAP 7 mEq/L (8-16); CALCIUM 8.2 mg/dL (8.5-10.4); CARBON DIOXIDE 26 mEq/l (22-31); CHLORIDE 101 mEq/L (97-110); CREATININE 0.7 mg/dL (0.6-1.0); GLOMERULAR FILTRATION RATE > 60; GLUCOSE 93 mg/dL (70-100); SODIUM 134 mEq/L (134-144)
--- NOTE | 2016-11-25 08:36 | HOSPPROG ---
Hospitalist Progress Note Assessment/Plan: #Acutely decompensated alcoholic cirrhosis: s/p 2.4L paracentesis on admit. Negative for SBP. Cont diuretics #Abd pain: U/S yesterday with minimal ascites #ESBL UTI: day 03/13 Levaquin today #Chronic thrombocytopenia: stable. No e/o bleeding #Umbilical hernia: new per patient. Easily reduced #Alcohol abuse: still drinking, but less #Social issues: Medicaid to evaluate her today for SNF vs. rehab #Metabolic alkalosis: due to contraction. Cont diuretics, repeat BMP in morning #DVT px: ambulating #Disp: DC today to [facility] Subjective: no acute events Objective: Vital Signs Temp Pulse Resp BP Pulse Ox 36.7 C 84 18 119/74 91 L 11/25/16 08:00 11/25/16 08:00 11/25/16 08:00 11/25/16 08:00 11/25/16 08:00 Laboratory Results 11/18/16 04:50 11/25/16 05:00 11/24/16 11/25/16 11/26/16 05:59 05:59 05:59 Intake Total 240 550 Output Total 125 Balance 115 550 PT 18.1 SEC (12.0-15.0) H 11/16/16 10:20 INR 1.50 (0.83-1.16) H 11/16/16 10:20 - Physical Exam Constitutional: chronically ill appearing Eyes: PERRL Ears, Nose, Mouth, Throat: moist mucous membranes Cardiovascular: regular rate and rhythym, edema (+2 LE) Respiratory: no respiratory distress Gastrointestinal: normoactive bowel sounds, soft, non-tender abdomen, other ( umbilical hernia reduced) Genitourinary: no bladder fullness Skin: warm, normal color Neurologic: AAOx3 Psychiatric: interacting appropriately, flat affect ICD10 Worksheet Patient Problems: Problems Problem Status Onset Ascites Acute Abdominal pain Acute Alcohol abuse Acute Alcohol intoxication Acute Alcohol use Acute Alcoholic cirrhosis of liver with ascites Acute Delirium tremens Acute Hematochezia Acute Pancytopenia Acute SBP (spontaneous bacterial peritonitis) Acute
[2016-11-25] MEDS: POTASSIUM CL 20 MEQ TAB PO SCH (08:39)
[2016-11-25] MEDS: MULTIVITAMINS 1 EACH TAB PO SCH (08:40)
[2016-11-25] MEDS: FUROSEMIDE 40 MG TAB PO SCH (08:40)
[2016-11-25] MEDS: PANTOPRAZOLE SODIUM 40 MG TAB PO SCH (08:40)
[2016-11-25] MEDS: FOLIC ACID 1 MG TAB PO SCH (08:40)
[2016-11-25] MEDS: MAGNESIUM OXIDE 400 MG TAB PO SCH (08:40)
[2016-11-25] MEDS: RIFAXIMIN 550 MG TAB PO SCH (08:40)
[2016-11-25] MEDS: levETIRAcetam 500 MG TAB PO SCH (08:40)
[2016-11-25] MEDS: SPIRONOLACTONE 100 MG TAB PO SCH (08:40)
[2016-11-25] MEDS: CITALOPRAM 20 MG TAB PO SCH (08:40)
[2016-11-25 11:41] VITALS: BP 103/59; PULSE 81; RESP 16; TEMP 98.4; O2SAT 94
[2016-11-25] MEDS: HYDROCORTISONE 2.5% 30 GM CRTUBE TP SCH (11:47)
--- NOTE | 2016-11-25 12:09 | GDS ---
[f rep st] DISCHARGE SUMMARY DISCHARGE DIAGNOSES: 1. Acutely decompensated alcoholic cirrhosis. 2. Acute abdominal pain. 3. Acute extended-spectrum beta-lactamase urinary tract infection. 4. Contraction alkalosis. 5. Chronic thrombocytopenia. 6. Alcoholism with alcoholic liver disease. 7. Deconditioning. 8. Umbilical hernia. 9. Seizure d/o PROCEDURES: 11/16/2016: Paracentesis 2.4 L. HISTORY OF PRESENT ILLNESS: The patient is a 51-year-old female with a history of alcoholic cirrhosis, seizure disorder, and thrombocytopenia, presenting with increasing abdominal pain for 2 days and fevers and chills. Has had increased abdominal girth over the past 2 months, though she states she is compliant with her medications. She denies any chest pain. She complained of some shortness of breath due to abdominal ascites and a dry cough. HOSPITAL COURSE BY PROBLEM: 1. Acutely decompensated cirrhosis: The patient with evidence of volume overload. She underwent paracentesis of 2.4 L that was negative for SBP. She is resumed on her home diuretics. Patient was advised to stop drinking. 2. Acute abdominal pain: Again, likely secondary to volume overload. This is improved. 3. Acute ESBL UTI. The patient completed a 7-day course of antibiotics. 4. Metabolic alkalosis: This is likely a contraction with diuresis. This has resolved. 5. Normocytic anemia: Secondary to alcoholism. No evidence of bleeding. 6. Chronic thrombocytopenia: Platelets at baseline. No bleeding. 7. Alcohol abuse. Patient is still drinking but reports less. Suspect that living with her mother was contributing to this. Patient has been accepted to [facility] which I hope will assist in alcohol cessaation. 8. Social issues. The patient had been living with her alcoholic mother, and again, she has been accepted to [facility]. 9. Umbilical hernia: The patient reported this to me my first day caring for her. It was easily reduced. No evidence of necrosis. If causing issue, should follow up with Surgery. 10. Seizure d/o: [place] DISPOSITION: Patient is stable for discharge. MEDICATIONS: No new medications. /[id number]/MODL and [id number]/MODL, 11/25/16 1138 [facility]
--- NOTE | 2016-11-25 13:31 | PDIAF ---
- Diagnosis Code Status: Full Code - Medication Management Discharge Medications: Medications to Continue on Transfer Hydrocortisone 2.5% [Hydrocortisone 2.5% cream (*)] 1 xi TP BID 03/24/16 [Last Taken 11/14/16] Zinc Oxide [Desitin] 1 xi TP .3-4X/DAY 03/24/16 [Last Taken 11/14/16] Folic Acid [Folic Acid 1 MG (*)] 1 mg PO DAILY #0 tab 04/08/16 [Last Taken 11/14] Multivitamins [Multivitamin (*)] 1 each PO DAILY #0 tab 04/08/16 [Last Taken 06/23] Furosemide [Lasix 40 MG (*)] 40 mg PO BID@0900,1500 #0 tab 04/11/16 [Last Taken 11/14/16] Spironolactone 100 mg PO DAILY #30 tablet 04/11/16 [Last Taken 11/14/16] levETIRAcetam [Keppra 500 mg (*)] 500 mg PO BID #60 tab 04/11/16 [Last Taken 06/23] Rifaximin [Xifaxan] 550 mg PO BID 04/13/16 [Last Taken 11/14/16] Citalopram Hydrobromide [Celexa] 20 mg PO DAILY 11/16/16 [Last Taken 11/14/16] Lactulose [Cephulac 20 gm/30 ml oral soln (*)] 20 gm PO Q2D@09,21 11/16/16 [ Last Taken 11/14/16] Omeprazole 40 mg PO DAILY 11/16/16 [Last Taken 11/14/16] Potassium Cl [Klor-Con 20 meq (*)] 40 meq PO DAILY #0 tab 11/25/16 [Last Taken Unknown] Rifaximin [Xifaxan] 550 mg PO BID #0 tab 11/25/16 [Last Taken Unknown] Discharge Medications: Refer to the Discharge Home Medication list for PRN reason. - Orders Services needed: Registered Nurse, Certified Biomedical Analytical Scientist, Master Clinical Care Manager - Follow Up Care Current Providers and Referrals: Patient,NotPresent [Unknown] - As per Instructions
== END 2016-11-25 15:32 | DRG 433 ==
LOC: EDUNIT# → F3E 12:37 → OBSVTOIN 13:47
PROVIDERS: ADMIT Internal Medicine; ATTEND Internal Medicine
PROC: 0W9G3ZZ Drainage of Peritoneal Cavity, Percutaneous Approach (ICD-10-PCS; principal; 2016-11-16)
DX: K70.31 Alcoholic cirrhosis of liver with ascites (principal); N39.0 Urinary tract infection, site not specified; E87.3 Alkalosis; F10.288 Alcohol dependence with other alcohol-induced disorder; D69.6 Thrombocytopenia, unspecified; K42.9 Umbilical hernia without obstruction or gangrene; G40.909 Epilepsy, unspecified, not intractable, without status epilepticus; Z72.0 Tobacco use
CPT/HCPCS: 96365; 97116-GP; 97161-GP; 97165-GO; 97530-GO; 97535-GO; G0480; J0696; J1170; J1200; J2060; J3475

== ENCOUNTER 2016-12-18 10:29 | Emergency (ER) | payer MEDICAID ==
[2016-12-18] MEDS ORDERED: HYDROmorphONE/DILAUDID 1 MG/ML SYR IVP ONE (10:42)
--- NOTE | 2016-12-18 10:42 | EDPHY ---
HPI/HX/ROS/PE/MDM Narrative: CHIEF COMPLAINT: Abdominal pain. HPI: The patient is a 51-year-old female with a history of alcoholic cirrhosis and pancreatitis who presents via EMS for abdominal pain that began last night after drinking a pint of alcohol. Her pain radiates to her back. This feels similar to her previous episodes of pancreatitis. She denies fever, diarrhea, or other complaints at this time. REVIEW OF SYSTEMS: Aside from elements discussed in the HPI, a comprehensive 10-point review of systems was reviewed and is negative. PMH: Alcoholic cirrhosis, pancreatitis, SBP, seizure disorder, pancytopenia, depression, PTSD. I reviewed History & Physical dated 11/16/2016. SOCIAL HISTORY: Alcohol abuse, lives at [facility]. PHYSICAL EXAM: General: Patient is alert, appears in pain. ENT: Eyes are normal to inspection. ENT inspection normal. Neck: Normal inspection. Full range of motion. Respiratory: No respiratory distress. Breath sounds normal bilaterally. Cardiovascular: Regular rate and rhythm. Strong peripheral pulses. Abdomen: Distended and diffusely tender. There are no peritoneal signs. There are normal bowel sounds. Back: Normal to inspection. No tenderness to palpation. Skin: Normal color. No rash. Warm and dry. Extremities: Normal appearance. Full range of motion. Neuro: Oriented x3. Normal motor function. Normal sensory function. Portions of this note were transcribed by an ED scribe. I personally performed the history, physical exam, and medical decision making; and confirm the accuracy of the information in the transcribed note. ED Course: 51-year-old alcoholic female with a history of cirrhosis, ascites, remote history of SBP, and pancreatitis presents via EMS with abdominal pain that began last night after drinking a pint of alcohol. She has no associated symptoms. It feels similar to her previous bouts of pancreatitis. On exam she is diffusely tender and her abdomen is distended. An IV was established and labs ordered. 0.5mg IV Dilaudid administered for pain. I reviewed the patient's laboratory studies. AST elevated at 86. Alkaline phosphatase elevated at 375. 1320: Has tolerated PO fluids well. She has ambulated well through the emergency department. She is safe for discharge at this time. Case Management will work on a way to get her back to [facility]. MDM: This patient presents with abdominal pain in the setting of severe liver disease and prior pancreatitis. Of note, the patient presents immediately after being [facility] from [facility] after being arrested following an alcohol binge. On re-evaluation, her abdomen is no longer significantly tender. I have low suspicion for SBP. The patient's lab work is essentially baseline. I think she is an appropriate candidate to be discharged back to her assisted living facility. - Data Points Laboratory Results: Laboratory Results 12/18/16 Unknown 12/18/16 Unknown 12/18/16 12/18/16 12/18/16 Unknown Unknown 12:05 WBC 3.20 10^3/uL L 10^3/uL (3.80-9.50) RBC 3.13 10^6/uL L 10^6/uL (4.18-5.33) Hgb 8.9 g/dL L g/dL (12.6-16.3) POC Hgb Hct 28.4 % L % (38.0-47.0) POC Hct MCV 90.7 fL fL (81.5-99.8) MCH 28.4 pg pg (27.9-34.1) MCHC 31.3 g/dL L g/dL (32.4-36.7) RDW 13.8 % % (11.5-15.2) Plt Count 41 10^3/uL L 10^3/uL (150-400) MPV 12.0 fL H fL (8.7-11.7) Neut % (Auto) 81.9 % H % (39.3-74.2) Lymph % (Auto) 9.1 % L % (15.0-45.0) [place] % (Auto) 7.2 % % (4.5-13.0) Eos % (Auto) 0.6 % % (0.6-7.6) Baso % (Auto) 0.6 % % (0.3-1.7) Nucleat RBC Rel Count 0.0 % % (0.0-0.2) Absolute Neuts (auto) 2.62 10^3/uL 10^3/uL (1.70-6.50) Absolute Lymphs (auto) 0.29 10^3/uL L 10^3/uL (1.00-3.00) Absolute Monos (auto) 0.23 10^3/uL L 10^3/uL (0.30-0.80) Absolute Eos (auto) 0.02 10^3/uL L 10^3/uL (0.03-0.40) Absolute Basos (auto) 0.02 10^3/uL 10^3/uL (0.02-0.10) Absolute Nucleated RBC 0.00 10^3/uL 10^3/uL (0-0.01) Immature Gran % 0.6 % % (0.0-1.1) Immature Gran # 0.02 10^3/uL 10^3/uL (0.00-0.10) Platelet Estimate DECREASED L (ADEQ) PT 16.3 SEC H SEC (12.0-15.0) INR 1.31 H (0.83-1.16) APTT 31.4 SEC SEC (23.0-38.0) POC Sodium Sodium 139 mEq/L mEq/L (134-144) POC Potassium Potassium 4.0 mEq/L mEq/L (3.5-5.2) POC Chloride Chloride 111 mEq/L H mEq/L (97-110) Carbon Dioxide 16 mEq/l L mEq/l (22-31) Anion Gap 12 mEq/L mEq/L (8-16) POC BUN BUN 12 mg/dL mg/dL (7-23) Creatinine 0.5 mg/dL L mg/dL (0.6-1.0) POC Creatinine Estimated GFR > 60 Glucose 93 mg/dL mg/dL (70-100) POC Glucose Calcium 8.0 mg/dL L mg/dL (8.5-10.4) Total Bilirubin 2.7 mg/dL H mg/dL (0.1-1.4) Conjugated Bilirubin 1.2 mg/dL H mg/dL (0.0-0.5) Unconjugated Bilirubin 1.5 mg/dL H mg/dL (0.0-1.1) AST 86 IU/L H IU/L (14-46) ALT 36 IU/L IU/L (9-52) Alkaline Phosphatase 375 IU/L H IU/L (38-126) Total Protein 6.7 g/dL g/dL (6.3-8.2) Albumin 2.9 g/dL L g/dL (3.5-5.0) Lipase 191.0 IU/L IU/L (23-300) 12/18/16 12:03 WBC RBC Hgb POC Hgb 8.5 gm/dL L gm/dL (12.3-15.9) Hct POC Hct 25 % L % (35.5-47.5) MCV MCH MCHC RDW Plt Count MPV Neut % (Auto) Lymph % (Auto) [place] % (Auto) Eos % (Auto) Baso % (Auto) Nucleat RBC Rel Count Absolute Neuts (auto) Absolute Lymphs (auto) Absolute Monos (auto) Absolute Eos (auto) Absolute Basos (auto) Absolute Nucleated RBC Immature Gran % Immature Gran # Platelet Estimate PT INR APTT POC Sodium 140 mEq/L mEq/L (134-144) Sodium POC Potassium 3.8 mEq/L mEq/L (3.3-5.0) Potassium POC Chloride 108 mEq/L mEq/L (96-108) Chloride Carbon Dioxide Anion Gap POC BUN 10 mg/dL mg/dL (7-23) BUN Creatinine POC Creatinine 0.6 mg/dL mg/dL (0.6-1.2) Estimated GFR Glucose POC Glucose 98 mg/dL mg/dL (70-100) Calcium Total Bilirubin Conjugated Bilirubin Unconjugated Bilirubin AST ALT Alkaline Phosphatase Total Protein Albumin Lipase Medications Given: Discontinued Medications Hydromorphone HCl (Dilaudid) 0.5 mg IVP EDNOW ONE Stop: 12/18/16 10:43 Last Admin: 12/18/16 11:08 Dose: 0.5 mg Point of Care Test Results: 12/18/16 12:03 POC Sodium 140 POC Potassium 3.8 POC Chloride 108 POC BUN 10 POC Creatinine 0.6 POC Glucose 98 General Time Seen by Provider: 12/18/16 10:36 Initial Vital Signs: Initial Vital Signs Temperature (C) 37.2 C 12/18/16 10:38 Heart Rate 113 H 12/18/16 10:38 Respiratory Rate 18 12/18/16 10:38 Blood Pressure 125/95 H 12/18/16 10:38 O2 Sat (%) 100 12/18/16 10:38 O2 Delivery Mode Room Air O2 (L/minute) 2 Allergies/Adverse Reactions: codeine Allergy (Severe, Verified 09/09/16 12:44) Other-Enter Comments Home Medications: Medication Instructions Recorded Hydrocortisone 2.5% 1 ix TP BID 03/24/16 [Hydrocortisone 2.5% cream (*)] Zinc Oxide [Desitin] 1 xi TP .3-4X/DAY 03/24/16 Folic Acid [Folic Acid 1 MG (*)] 1 mg PO DAILY #0 tab 04/08/16 Multivitamins [Multivitamin (*)] 1 each PO DAILY #0 tab 04/08/16 Furosemide [Lasix 40 MG (*)] 40 mg PO BID@0900,1500 #0 tab 04/11/16 Spironolactone 100 mg PO DAILY #30 tablet 04/11/16 levETIRAcetam [Keppra 500 mg (*)] 500 mg PO BID #60 tab 04/11/16 Rifaximin [Xifaxan] 550 mg PO BID 04/13/16 Citalopram Hydrobromide [Celexa] 20 mg PO DAILY 11/16/16 Lactulose [Cephulac 20 gm/30 ml 20 gm PO Q2D@09,21 11/16/16 oral soln (*)] Omeprazole 40 mg PO DAILY 11/16/16 Potassium Cl [Klor-Con 20 meq (*)] 40 meq PO DAILY #0 tab 11/25/16 Rifaximin [Xifaxan] 550 mg PO BID #0 tab 11/25/16 Departure - Departure Disposition: Home, Routine, Self-Care Clinical Impression: Abdominal pain Qualifiers: Abdominal location: generalized Qualified Code(s): R10.84 - Generalized abdominal pain Condition: Good Instructions: Acute Abdominal Pain (ED) Additional Instructions: Follow up with your primary care provider for reevaluation. Return to the emergency department if you experience any serious worsening of condition. Referrals: Sonja Wright, PAC [Primary Care Provider] - As per Instructions Report Scribed for: Bud Hicks Report Scribed by: Beto Fierro Date of Report: 12/18/16 Time of Report: 10:43
[2016-12-18 11:52] LABS: % IMMATURE GRANULYOCYTES 0.6 % (0.0-1.1); ABSOLUTE IMMATURE GRANULOCYTES 0.02 10^3/uL (0.00-0.10); ADD DIFF? NO; ADD MORPH? NO; ADD SCAN? YES; ATYPICAL LYMPHOCYTE FLAG 10 (0-99); FRAGMENT RBC FLAG 0 (0-99); HEMATOCRIT 28.4 % (38.0-47.0); HEMOGLOBIN 8.9 g/dL (12.6-16.3); LEFT SHIFT FLG 0 (0-99); LIPEMIA HEMOLYSIS FLAG 80 (0-99); MEAN CELL HEMOGLOBIN 28.4 pg (27.9-34.1); MEAN CELL HEMOGLOBIN CONCENTR. 31.3 g/dL (32.4-36.7); MEAN CELL VOLUME 90.7 fL (81.5-99.8); RED BLOOD CELL COUNT 3.13 10^6/uL (4.18-5.33); RED CELL DISTRIBUTION WIDTH 13.8 % (11.5-15.2)
[2016-12-18 11:55] LABS: PLATELET CLUMPS FLAG 260 (0-99); PLATELET COUNT 41 10^3/uL (150-400)
[2016-12-18 12:03] LABS: ALANINE AMINOTRANSFERASE 36 IU/L (9-52); ALBUMIN 2.9 g/dL (3.5-5.0); ALKALINE PHOSPHATASE 375 IU/L (38-126); ANION GAP 12 mEq/L (8-16); ASPARTATE AMINOTRANSFERASE 86 IU/L (14-46); BILIRUBIN,TOTAL 2.7 mg/dL (0.1-1.4); BILIRUBIN-CONJUGATED 1.2 mg/dL (0.0-0.5); BILIRUBIN-UNCONJUGATED 1.5 mg/dL (0.0-1.1); CARBON DIOXIDE 16 mEq/l (22-31); CHLORIDE 111 mEq/L (97-110); CREATININE 0.5 mg/dL (0.6-1.0); GLOMERULAR FILTRATION RATE > 60; GLUCOSE 93 mg/dL (70-100); SODIUM 139 mEq/L (134-144); TOTAL PROTEIN 6.7 g/dL (6.3-8.2)
[2016-12-18 12:25] LABS: INR 1.31 (0.83-1.16); PROTIME(PATIENT) 16.3 SEC (12.0-15.0)
[2016-12-18 12:26] LABS: SCAN NEGATIVE
[2016-12-18 12:26] LABS: APTT 31.4 SEC (23.0-38.0)
[2016-12-18 12:27] LABS: PLATELET ESTIMATE DECREASED (ADEQ)
[2016-12-18] MEDS ORDERED: IBUPROFEN 600 MG TAB PO ONE (14:06)
[2016-12-18] MEDS ORDERED: IBUPROFEN 200 MG TAB PO ONE (14:08)
[2016-12-18 14:14] VITALS: BP 114/78; PULSE 88; RESP 15; TEMP 98.4; O2SAT 92
== END 2016-12-18 14:23 | disposition home or self-care (01) ==
DX: R10.84 Generalized abdominal pain (principal)
CPT/HCPCS: 82947-QW; 96374; J1170

== ENCOUNTER 2017-01-19 02:36 | Emergency (ER) | payer MEDICAID ==
[2017-01-19 02:47] VITALS: RESP 16
[2017-01-19] MEDS ORDERED: ONDANSETRON 4 MG/2 ML VIAL IVP ONE (03:25)
[2017-01-19] MEDS ORDERED: NS 1,000 ML IV ONE (03:25)
[2017-01-19 03:30] LABS: % IMMATURE GRANULYOCYTES 0.3 % (0.0-1.1); ABSOLUTE IMMATURE GRANULOCYTES 0.01 10^3/uL (0.00-0.10); ADD DIFF? NO; ADD MORPH? NO; ADD SCAN? NO; ATYPICAL LYMPHOCYTE FLAG 0 (0-99); FRAGMENT RBC FLAG 0 (0-99); HEMATOCRIT 28.2 % (38.0-47.0); HEMOGLOBIN 9.3 g/dL (12.6-16.3); LEFT SHIFT FLG 0 (0-99); LIPEMIA HEMOLYSIS FLAG 80 (0-99); MEAN CELL HEMOGLOBIN 27.7 pg (27.9-34.1); MEAN CELL VOLUME 83.9 fL (81.5-99.8); MEAN PLATELET VOLUME 10.3 fL (8.7-11.7); PLATELET CLUMPS FLAG 10 (0-99); PLATELET COUNT 56 10^3/uL (150-400); RED BLOOD CELL COUNT 3.36 10^6/uL (4.18-5.33); RED CELL DISTRIBUTION WIDTH 15.3 % (11.5-15.2)
[2017-01-19 03:43] LABS: ALANINE AMINOTRANSFERASE 51 IU/L (9-52); ALBUMIN 2.8 g/dL (3.5-5.0); ALKALINE PHOSPHATASE 289 IU/L (38-126); ANION GAP 9 mEq/L (8-16); ASPARTATE AMINOTRANSFERASE 96 IU/L (14-46); BILIRUBIN,TOTAL 1.6 mg/dL (0.1-1.4); BILIRUBIN-CONJUGATED 1.1 mg/dL (0.0-0.5); BILIRUBIN-UNCONJUGATED 0.5 mg/dL (0.0-1.1); CALCIUM 8.3 mg/dL (8.5-10.4); CARBON DIOXIDE 20 mEq/l (22-31); CHLORIDE 111 mEq/L (97-110); CREATININE 0.6 mg/dL (0.6-1.0); GLOMERULAR FILTRATION RATE > 60; GLUCOSE 115 mg/dL (70-100); POTASSIUM 3.6 mEq/L (3.5-5.2); SODIUM 140 mEq/L (134-144); TOTAL PROTEIN 6.4 g/dL (6.3-8.2)
--- NOTE | 2017-01-19 04:37 | EDPHY ---
H & P Stated Complaint: abdominal pain Time Seen by Provider: 01/19/17 02:58 HPI/ROS: Chief Complaint: Abdominal pain HPI: 51-year-old homeless woman well known to this emergency department with a history of alcoholic pancreatitis. Patient states she started having pain again this afternoon. Patient states that she did drink alcohol yesterday. Has had some nausea, no vomiting, no fevers or chills. No chest pain shortness of breath. Symptoms feel similar to her prior episodes of pancreatitis. Denies any falls or injuries. Is continuing to drink alcohol heavily. ROS: 10 point Review of Systems is negative except as noted in the HPI. PMH: Pancreatitis, alcoholism Social History: Homeless, Positive smoking, daily alcohol, no recreational drug use Family History: non-contributory Physical Exam: Gen: Awake, Alert, No Distress HEENT: Nose: no rhinorrhea Eyes: PERRLA, EOMI Mouth: Moist mucosa Neck: Supple, no JVD Chest: nontender, lungs clear to auscultation Heart: S1, S2 normal, no murmur Abd: Soft, mild diffuse tenderness with a soft abdomen, no guarding Back: no CVA tenderness, no midline tenderness Ext: no edema, non-tender Skin: no rash Neuro: CN II-XII intact, Sensation grossly intact, Strength 5/5 in bilateral upper and lower extremities - Personal History Tetanus Vaccine Date: 8 years ago - Medical/Surgical History Hx Asthma: No Hx Chronic Respiratory Disease: No Hx Diabetes: No Hx Cardiac Disease: No Hx Renal Disease: No Hx Cirrhosis: Yes Hx Alcoholism: Yes Hx HIV/AIDS: No Hx Splenectomy or Spleen Trauma: No Other PMH: ETOH, cirrhosis, ascites, HTN, spot found on L lung per pt 2016 CHRONIC PANCREATITIS, left ankle fx, hep c., SZ - Social History Smoking Status: Former smoker Constitutional: Initial Vital Signs Temperature (C) 37.0 C 01/19/17 02:45 Heart Rate 101 H 01/19/17 02:45 Respiratory Rate 16 01/19/17 02:45 Blood Pressure 117/71 01/19/17 02:45 O2 Sat (%) 97 01/19/17 02:45 O2 Delivery Mode Room Air Allergies/Adverse Reactions: codeine Allergy (Severe, Verified 01/19/17 02:45) Other-Enter Comments Home Medications: Medication Instructions Recorded Hydrocortisone 2.5% 1 xi TP BID 03/24/16 [Hydrocortisone 2.5% cream (*)] Zinc Oxide [Desitin] 1 xi TP .3-4X/DAY 03/24/16 Folic Acid [Folic Acid 1 MG (*)] 1 mg PO DAILY #0 tab 04/08/16 Multivitamins [Multivitamin (*)] 1 each PO DAILY #0 tab 04/08/16 Furosemide [Lasix 40 MG (*)] 40 mg PO BID@0900,1500 #0 tab 04/11/16 Spironolactone 100 mg PO DAILY #30 tablet 04/11/16 levETIRAcetam [Keppra 500 mg (*)] 500 mg PO BID #60 tab 04/11/16 Rifaximin [Xifaxan] 550 mg PO BID 04/13/16 Citalopram Hydrobromide [Celexa] 20 mg PO DAILY 11/16/16 Lactulose [Cephulac 20 gm/30 ml 20 gm PO Q2D@,21 11/16/16 oral soln (*)] Omeprazole 40 mg PO DAILY 11/16/16 Potassium Cl [Klor-Con 20 meq (*)] 40 meq PO DAILY #0 tab 11/25/16 Rifaximin [Xifaxan] 550 mg PO BID #0 tab 11/25/16 Medical Decision Making ED Course/Re-evaluation: Patient is feeling improved after IV fluids, Zofran and a GI cocktail. Laboratory evaluations are unremarkable. Symptoms are more consistent with alcoholic gastritis then pancreatitis. She is improved. I have encouraged her to seek help to discontinue drinking alcohol. She is referred for follow up with [facility], return for worsening. - Data Points Laboratory Results: Laboratory Results 01/19/17 02:55 01/19/17 02:55 01/19/17 01/19/17 02:55 02:55 WBC 2.88 10^3/uL L 10^3/uL (3.80-9.50) RBC 3.36 10^6/uL L 10^6/uL (4.18-5.33) Hgb 9.3 g/dL L g/dL (12.6-16.3) Hct 28.2 % L % (38.0-47.0) MCV 83.9 fL fL (81.5-99.8) MCH 27.7 pg L pg (27.9-34.1) MCHC 33.0 g/dL g/dL (32.4-36.7) RDW 15.3 % H % (11.5-15.2) Plt Count 56 10^3/uL L 10^3/uL (150-400) MPV 10.3 fL fL (8.7-11.7) Neut % (Auto) 71.3 % % (39.3-74.2) Lymph % (Auto) 12.5 % L % (15.0-45.0) [place] % (Auto) 14.2 % H % (4.5-13.0) Eos % (Auto) 1.4 % % (0.6-7.6) Baso % (Auto) 0.3 % % (0.3-1.7) Nucleat RBC Rel Count 0.0 % % (0.0-0.2) Absolute Neuts (auto) 2.05 10^3/uL 10^3/uL (1.70-6.50) Absolute Lymphs (auto) 0.36 10^3/uL L 10^3/uL (1.00-3.00) Absolute Monos (auto) 0.41 10^3/uL 10^3/uL (0.30-0.80) Absolute Eos (auto) 0.04 10^3/uL 10^3/uL (0.03-0.40) Absolute Basos (auto) 0.01 10^3/uL L 10^3/uL (0.02-0.10) Absolute Nucleated RBC 0.00 10^3/uL 10^3/uL (0-0.01) Immature Gran % 0.3 % % (0.0-1.1) Immature Gran # 0.01 10^3/uL 10^3/uL (0.00-0.10) Sodium 140 mEq/L mEq/L (134-144) Potassium 3.6 mEq/L mEq/L (3.5-5.2) Chloride 111 mEq/L H mEq/L (97-110) Carbon Dioxide 20 mEq/l L mEq/l (22-31) Anion Gap 9 mEq/L mEq/L (8-16) BUN 8 mg/dL mg/dL (7-23) Creatinine 0.6 mg/dL mg/dL (0.6-1.0) Estimated GFR > 60 Glucose 115 mg/dL H mg/dL (70-100) Calcium 8.3 mg/dL L mg/dL (8.5-10.4) Total Bilirubin 1.6 mg/dL H mg/dL (0.1-1.4) Conjugated Bilirubin 1.1 mg/dL H mg/dL (0.0-0.5) Unconjugated Bilirubin 0.5 mg/dL mg/dL (0.0-1.1) AST 96 IU/L H IU/L (14-46) ALT 51 IU/L IU/L (9-52) Alkaline Phosphatase 289 IU/L H IU/L (38-126) Total Protein 6.4 g/dL g/dL (6.3-8.2) Albumin 2.8 g/dL L g/dL (3.5-5.0) Lipase 278.0 IU/L IU/L (23-300) Medications Given: Discontinued Medications Sodium Chloride (Ns) 1,000 mls @ 0 mls/hr IV ONCE ONE PRN Reason: Wide Open Stop: 01/19/17 03:26 Last Admin: 01/19/17 03:33 Dose: 1,000 mls Ondansetron HCl (Zofran) 4 mg IVP EDNOW ONE Stop: 01/19/17 03:26 Last Admin: 01/19/17 03:34 Dose: 4 mg Departure - Departure Disposition: Home, Routine, Self-Care Clinical Impression: Alcohol abuse, Gastritis Condition: Good Instructions: Gastritis (ED), Diet for Stomach Ulcers and Gastritis (ED), Abuse of Alcohol (ED) Additional Instructions: You may take famotidine daily as needed for gastritis and abdominal pain. Please seek help to discontinue drinking alcohol. Follow up with doctor in 2-3 days for re-evaluation. Referrals: Sonja Wright, PAC [Primary Care Provider] - As per Instructions
[2017-01-19] MEDS ORDERED: MAG HYDROX/AL HYDROX/SIMETH 30 ML UDCUP PO ONE (04:58)
[2017-01-19] MEDS ORDERED: LIDOCAINE 2% VISCOUS 15 ML UDCUP PO ONE (04:58)
[2017-01-19 06:07] VITALS: BP 118/71; PULSE 76; TEMP 98.2; O2SAT 92
== END 2017-01-19 06:07 | disposition home or self-care (01) ==
LOC: EDUNIT#
DX: K29.70 Gastritis, unspecified, without bleeding (principal); F10.10 Alcohol abuse, uncomplicated; I10 Essential (primary) hypertension; Z87.891 Personal history of nicotine dependence
CPT/HCPCS: 96374; J2405

== ENCOUNTER 2017-04-01 04:09 | Emergency (ER) | payer MEDICAID ==
[2017-04-01 04:20] VITALS: RESP 18
[2017-04-01] MEDS ORDERED: MAG HYDROX/AL HYDROX/SIMETH 30 ML UDCUP PO ONE ×2 (04:27→04:28)
[2017-04-01] MEDS ORDERED: LIDOCAINE 2% VISCOUS 15 ML UDCUP PO ONE ×2 (04:28)
--- NOTE | 2017-04-01 04:44 | EDPHY ---
H & P Stated Complaint: pancreatitis- found laying on ground outside, + ETOH Time Seen by Provider: 04/01/17 04:22 HPI/ROS: Chief Complaint: Abdominal pain, alcohol intoxication HPI: 52-year-old woman with a history of alcoholic liver disease, pancreatitis and chronic alcoholism was found down intoxicated by bystanders. EMS was called on arrival the patient was complaining of her chronic pancreatitis pain. Patient states she has been having her usual pain for several weeks now. Some nausea no vomiting. She is continuing to drink alcohol states she has been drinking tonight. Patient states she has not been taking her medications. She is also not followed up with the [facility] as scheduled. Patient states that she does not which she continued for the taking her medicines or healthcare. She states "I am not suicidal but I just do not think I am going to ever get any better". Patient states that she is not really wanting any further medical treatment at this time. She states she got wet outside in the rain but denies any new fevers or chills. No chest pain or shortness of breath. She does note that her abdomen is continuing to get distended and has missed multiple appointments at the clinic. She is asking for pain medicine here but no other treatment at this time. ROS: 10 point Review of Systems is negative except as noted in the HPI. PMH: Alcoholic liver disease, cirrhosis, pancreatitis, chronic alcoholism Social History: No smoking, chronic heavy alcohol use, no recreational drug use Family History: non-contributory Physical Exam: Gen: Awake, Alert, smells strongly of alcohol HEENT: Nose: no rhinorrhea Eyes: PERRLA, EOMI Mouth: Moist mucosa Neck: Supple, no JVD Chest: nontender, lungs clear to auscultation Heart: S1, S2 normal, no murmur Abd: Soft, distended, not tympanitic, mild diffuse tenderness, no guarding Back: no CVA tenderness, no midline tenderness Ext: no edema, non-tender Skin: no rash Neuro: CN II-XII intact, Sensation grossly intact, Strength 5/5 in bilateral upper and lower extremities - Personal History LMP (Females 10-55): Unknown Current Tetanus/Diphtheria Vaccine: Yes Current Tetanus Diphtheria and Acellular Pertussis (TDAP): Yes Tetanus Vaccine Date: 2010 - Medical/Surgical History Hx Asthma: No Hx Chronic Respiratory Disease: No Hx Diabetes: No Hx Cardiac Disease: No Hx Renal Disease: No Hx Cirrhosis: Yes Hx Alcoholism: Yes Hx HIV/AIDS: No Hx Splenectomy or Spleen Trauma: No Other PMH: ETOH, cirrhosis, ascites, HTN, spot found on L lung per pt 2016 CHRONIC PANCREATITIS, left ankle fx, hep c., SZ - Social History Smoking Status: Former smoker Constitutional: Initial Vital Signs Temperature (C) 37.4 C 04/01/17 04:18 Heart Rate 101 H 04/01/17 04:18 Respiratory Rate 18 04/01/17 04:18 Blood Pressure 122/80 H 04/01/17 04:18 O2 Sat (%) 97 04/01/17 04:18 O2 Delivery Mode Room Air Allergies/Adverse Reactions: codeine Allergy (Severe, Verified 04/01/17 04:20) Other-Enter Comments Home Medications: Medication Instructions Recorded Hydrocortisone 2.5% 1 xi TP BID 03/24/16 [Hydrocortisone 2.5% cream (*)] Zinc Oxide [Desitin] 1 xi TP .3-4X/DAY 03/24/16 Folic Acid [Folic Acid 1 MG (*)] 1 mg PO DAILY #0 tab 04/08/16 Multivitamins [Multivitamin (*)] 1 each PO DAILY #0 tab 04/08/16 Furosemide [Lasix 40 MG (*)] 40 mg PO BID@0900,1500 #0 tab 04/11/16 Spironolactone 100 mg PO DAILY #30 tablet 04/11/16 levETIRAcetam [Keppra 500 mg (*)] 500 mg PO BID #60 tab 04/11/16 Rifaximin [Xifaxan] 550 mg PO BID 04/13/16 Citalopram Hydrobromide [Celexa] 20 mg PO DAILY 11/16/16 Lactulose [Cephulac 20 gm/30 ml 20 gm PO Q2D@,21 11/16/16 oral soln (*)] Omeprazole 40 mg PO DAILY 11/16/16 Potassium Cl [Klor-Con 20 meq (*)] 40 meq PO DAILY #0 tab 11/25/16 Rifaximin [Xifaxan] 550 mg PO BID #0 tab 11/25/16 Medical Decision Making ED Course/Re-evaluation: 52-year-old known woman with a history of liver disease chronic abdominal pain is presenting this morning after being found outside. Patient is known to be homeless. I had a long talk with her and at this point the patient states she is not interested in being compliant with her medications. She is not wish to follow up further with [facility]. She is continuing to drink alcohol and does not wish to change this at this time. She clearly denies being suicidal but states that she does not wish to try to get any better at this time. She is in her usual state of health. No evidence of acute spontaneous bacterial peritonitis. Her abdomen is soft and nonfocal. She is afebrile with otherwise normal vital signs here. She is tolerating p.o. and ambulating without difficulty. I have encouraged her to follow up with her doctors at the [facility] in a continue taking her medications and to try to decrease her alcohol consumption. Patient has been discharged with follow-up as an outpatient. She has been encouraged to return for any concerns. - Data Points Medications Given: Discontinued Medications Al Hydroxide/Mg Hydroxide (Maalox Susp) 30 ml PO EDNOW ONE Stop: 04/01/17 04:28 Last Admin: 04/01/17 04:33 Dose: Not Given Al Hydroxide/Mg Hydroxide (Maalox Susp) 30 ml PO ONCE ONE Stop: 04/01/17 04:29 Last Admin: 04/01/17 04:31 Dose: 30 ml Lidocaine (Lidocaine 2% Viscous) 5 ml PO EDNOW ONE Stop: 04/01/17 04:29 Last Admin: 04/01/17 04:33 Dose: Not Given Lidocaine (Lidocaine 2% Viscous) 15 ml PO ONCE ONE Stop: 04/01/17 04:29 Last Admin: 04/01/17 04:31 Dose: 15 ml Departure - Departure Disposition: Home, Routine, Self-Care Clinical Impression: Alcoholic cirrhosis of liver with ascites, Abdominal pain, Alcohol abuse Condition: Good Instructions: Abuse of Alcohol (ED), Abdominal Pain (ED) Additional Instructions: Please follow up with her doctors at the [facility] in 2-3 days for further evaluation. Please take your prescribed medications. Please seek help to decrease your alcohol consumption. Return to the emergency department for worsening pain, fevers, chills, uncontrolled vomiting, or any other concerns. Referrals: NONE *PRIMARY CARE P,. [Primary Care Provider] - As per Instructions
[2017-04-01 05:22] VITALS: BP 104/74; PULSE 97; TEMP 99; O2SAT 93
== END 2017-04-01 05:41 | disposition home or self-care (01) ==
LOC: EDUNIT#
DX: K70.31 Alcoholic cirrhosis of liver with ascites (principal); F10.10 Alcohol abuse, uncomplicated; I10 Essential (primary) hypertension; Z87.891 Personal history of nicotine dependence

== ENCOUNTER 2017-04-28 20:32 | Inpatient (IN) | payer MEDICAID ==
[2017-04-28] MEDS ORDERED: NS 1,000 ML IV ONE ×2 (20:38→23:02)
[2017-04-28 21:57] LABS: ADD DIFF? NO; ADD MORPH? NO; ADD SCAN? NO; ATYPICAL LYMPHOCYTE FLAG 50 (0-99); FRAGMENT RBC FLAG 0 (0-99); HEMATOCRIT 22.8 % (38.0-47.0); LEFT SHIFT FLG 0 (0-99); LIPEMIA HEMOLYSIS FLAG 80 (0-99); MEAN CELL HEMOGLOBIN 25.9 pg (27.9-34.1); MEAN CELL HEMOGLOBIN CONCENTR. 30.7 g/dL (32.4-36.7); MEAN CELL VOLUME 84.4 fL (81.5-99.8); MEAN PLATELET VOLUME 10.6 fL (8.7-11.7); PLATELET CLUMPS FLAG 0 (0-99); PLATELET COUNT 55 10^3/uL (150-400); RED CELL DISTRIBUTION WIDTH 15.8 % (11.5-15.2)
[2017-04-28 22:06] LABS: COLOR AMBER; LEUKOCYTE ESTERASE,URINE NEGATIVE (NEGATIVE); NITRITE,URINE NEGATIVE (NEGATIVE)
[2017-04-28 22:08] LABS: ALANINE AMINOTRANSFERASE 42 IU/L (9-52); ALBUMIN 2.5 g/dL (3.5-5.0); ALKALINE PHOSPHATASE 229 IU/L (38-126); ANION GAP 10 mEq/L (8-16); ASPARTATE AMINOTRANSFERASE 82 IU/L (14-46); BILIRUBIN-CONJUGATED 1.2 mg/dL (0.0-0.5); BILIRUBIN-UNCONJUGATED 0.8 mg/dL (0.0-1.1); CALCIUM 7.9 mg/dL (8.5-10.4); CARBON DIOXIDE 18 mEq/l (22-31); CHLORIDE 113 mEq/L (97-110); CREATININE 0.6 mg/dL (0.6-1.0); GLOMERULAR FILTRATION RATE > 60; GLUCOSE 84 mg/dL (70-100); POTASSIUM 3.2 mEq/L (3.5-5.2); SODIUM 141 mEq/L (134-144); TOTAL PROTEIN 5.7 g/dL (6.3-8.2)
[2017-04-28 22:10] LABS: BACTERIA TRACE /hpf (NONE SEEN); MUCUS 4+ /lpf (NONE-1+)
[2017-04-28 22:57] LABS: INR 1.55 (0.83-1.16); PROTIME(PATIENT) 18.6 SEC (12.0-15.0)
[2017-04-28 22:58] LABS: APTT 31.2 SEC (23.0-38.0)
[2017-04-28] MEDS ORDERED: HYDROmorphONE/DILAUDID 1 MG/ML SYR IVP ONE (23:01)
--- NOTE | 2017-04-28 23:06 | EDPHY ---
H & P Stated Complaint: AMS, EtOH, abd pain, ascites, has been eating dirt Time Seen by Provider: 04/28/17 20:47 HPI/ROS: Chief complaint: Alcohol intoxication, abdominal pain History of present illness: This is a 52-year-old female who presents to the emergency department apparently intoxicated and complaining of abdominal pain. Patient was brought to the emergency department by EMS. Apparently a bystander found her laying on the ground intoxicated and called 911. On my evaluation there is a strong odor of alcohol on breath. She is mumbling, stating her abdomen hurts. She is denying further complaints although it is difficult to understand her. Review of systems: Difficult to obtain as patient is mumbling on my evaluation - Personal History Tetanus Vaccine Date: 2010 - Medical/Surgical History Hx Asthma: No Hx Chronic Respiratory Disease: No Hx Diabetes: No Hx Cardiac Disease: No Hx Renal Disease: No Hx Cirrhosis: Yes Hx Alcoholism: Yes Hx HIV/AIDS: No Hx Splenectomy or Spleen Trauma: No Other PMH: ETOH, cirrhosis, ascites, HTN, spot found on L lung per pt 2016 CHRONIC PANCREATITIS, left ankle fx, hep c., SZ - Social History Smoking Status: Former smoker - Physical Exam Exam: General Appearance: Odor of alcohol on breath, mumbling Eyes: Pupils equal and round no pallor or injection. ENT, Mouth: Mucous membranes moist. Respiratory: There are no retractions, lungs are clear to auscultation. Cardiovascular: Regular rate and rhythm. Gastrointestinal: Severely distended consistent with ascites. Neurological: Alert but mumbling. Moving all extremities. Skin: Warm and dry, no rashes. Musculoskeletal: Neck is supple nontender. Extremities are symmetrical, full range of motion. Psychiatric: There is no agitation. Constitutional: Initial Vital Signs Temperature (C) 37.1 C 04/28/17 20:48 Heart Rate 112 H 04/28/17 20:48 Respiratory Rate 14 04/28/17 20:48 Blood Pressure 136/89 H 04/28/17 20:48 O2 Sat (%) 87 L 04/28/17 20:48 O2 Delivery Mode Nasal Cannula O2 (L/minute) 3 Allergies/Adverse Reactions: codeine Allergy (Severe, Verified 04/01/17 04:20) Other-Enter Comments Home Medications: Medication Instructions Recorded Hydrocortisone 2.5% 1 xi TP BID 03/24/16 [Hydrocortisone 2.5% cream (*)] Zinc Oxide [Desitin] 1 xi TP .3-4X/DAY 03/24/16 Folic Acid [Folic Acid 1 MG (*)] 1 mg PO DAILY #0 tab 04/08/16 Multivitamins [Multivitamin (*)] 1 each PO DAILY #0 tab 04/08/16 Furosemide [Lasix 40 MG (*)] 40 mg PO BID@0900,1500 #0 tab 04/11/16 Spironolactone 100 mg PO DAILY #30 tablet 04/11/16 levETIRAcetam [Keppra 500 mg (*)] 500 mg PO BID #60 tab 04/11/16 Rifaximin [Xifaxan] 550 mg PO BID 04/13/16 Citalopram Hydrobromide [Celexa] 20 mg PO DAILY 11/16/16 Lactulose [Cephulac 20 gm/30 ml 20 gm PO Q2D@09,21 11/16/16 oral soln (*)] Omeprazole 40 mg PO DAILY 11/16/16 Potassium Cl [Klor-Con 20 meq (*)] 40 meq PO DAILY #0 tab 11/25/16 Rifaximin [Xifaxan] 550 mg PO BID #0 tab 11/25/16 Medical Decision Making - Diagnostics Imaging: I viewed and interpreted images myself Procedures: Digital rectal exam without elizabeht melena ED Course/Re-evaluation: Patient is discussed with my secondary supervising physician Dr. Jamar Aguirre. Patient presents to the emergency department intoxicated stating her abdomen hurts. She is unwell appearing. Multiple concerning findings including a decreasing H&H, severe ascites and altered level of consciousness although she is intoxicated but her ammonia level is elevated. Ultimately patient requires inpatient admission for further treatment. She is admitted to Dr. Praveen Garcia for further evaluation and care. Differential Diagnosis: Included but not limited to alcohol intoxication, alcohol withdrawal, encephalitis, polysubstance abuse, psychiatric disorders multiple etiologies, acute GI bleed of multiple etiologies, - Data Points Laboratory Results: Laboratory Results 04/28/17 21:40 04/28/17 21:40 04/28/17 04/28/17 04/28/17 21:40 21:40 21:40 WBC RBC Hgb Hct MCV MCH MCHC RDW Plt Count MPV Neut % (Auto) Lymph % (Auto) [place] % (Auto) Eos % (Auto) Baso % (Auto) Nucleat RBC Rel Count Absolute Neuts (auto) Absolute Lymphs (auto) Absolute Monos (auto) Absolute Eos (auto) Absolute Basos (auto) Absolute Nucleated RBC Immature Gran % Immature Gran # PT 18.6 SEC H SEC (12.0-15.0) INR 1.55 H (0.83-1.16) APTT 31.2 SEC SEC (23.0-38.0) Sodium Potassium Chloride Carbon Dioxide Anion Gap BUN Creatinine Estimated GFR Glucose Calcium Total Bilirubin Conjugated Bilirubin Unconjugated Bilirubin AST ALT Alkaline Phosphatase Total Protein Albumin Lipase Beta HCG, Qual Urine Color STEPHANE Urine Appearance HAZY Urine pH 6.0 (5.0-7.5) Ur Specific [place] 1.021 (1.002-1.030) Urine Protein 1+ H (NEGATIVE) Urine Ketones NEGATIVE (NEGATIVE) Urine Blood 2+ H (NEGATIVE) Urine Nitrate NEGATIVE (NEGATIVE) Urine Bilirubin NEGATIVE (NEGATIVE) Urine Urobilinogen 4.0 EU H EU (0.2-1.0) Ur Leukocyte Esterase NEGATIVE (NEGATIVE) Urine RBC 10-15 /hpf H /hpf (0-3) Urine WBC 1-3 /hpf /hpf (0-3) Ur Epithelial Cells TRACE /lpf /lpf (NONE-1+) Urine Bacteria TRACE /hpf H /hpf (NONE SEEN) Urine Mucus 4+ /lpf H /lpf (NONE-1+) Urine Glucose NEGATIVE (NEGATIVE) Ethyl Alcohol 214 mg/dL H mg/dL (0-10) 04/28/17 04/28/17 04/28/17 21:40 21:40 21:40 WBC 2.00 10^3/uL L 10^3/uL (3.80-9.50) RBC 2.70 10^6/uL L 10^6/uL (4.18-5.33) Hgb 7.0 g/dL L g/dL (12.6-16.3) Hct 22.8 % L % (38.0-47.0) MCV 84.4 fL fL (81.5-99.8) MCH 25.9 pg L pg (27.9-34.1) MCHC 30.7 g/dL L g/dL (32.4-36.7) RDW 15.8 % H % (11.5-15.2) Plt Count 55 10^3/uL L 10^3/uL (150-400) MPV 10.6 fL fL (8.7-11.7) Neut % (Auto) 47.5 % % (39.3-74.2) Lymph % (Auto) 28.5 % % (15.0-45.0) [place] % (Auto) 14.5 % H % (4.5-13.0) Eos % (Auto) 8.5 % H % (0.6-7.6) Baso % (Auto) 1.0 % % (0.3-1.7) Nucleat RBC Rel Count 0.0 % % (0.0-0.2) Absolute Neuts (auto) 0.95 10^3/uL L 10^3/uL (1.70-6.50) Absolute Lymphs (auto) 0.57 10^3/uL L 10^3/uL (1.00-3.00) Absolute Monos (auto) 0.29 10^3/uL L 10^3/uL (0.30-0.80) Absolute Eos (auto) 0.17 10^3/uL 10^3/uL (0.03-0.40) Absolute Basos (auto) 0.02 10^3/uL 10^3/uL (0.02-0.10) Absolute Nucleated RBC 0.00 10^3/uL 10^3/uL (0-0.01) Immature Gran % 0.0 % % (0.0-1.1) Immature Gran # 0.00 10^3/uL 10^3/uL (0.00-0.10) PT INR APTT Sodium 141 mEq/L mEq/L (134-144) Potassium 3.2 mEq/L L mEq/L (3.5-5.2) Chloride 113 mEq/L H mEq/L (97-110) Carbon Dioxide 18 mEq/l L mEq/l (22-31) Anion Gap 10 mEq/L mEq/L (8-16) BUN 9 mg/dL mg/dL (7-23) Creatinine 0.6 mg/dL mg/dL (0.6-1.0) Estimated GFR > 60 Glucose 84 mg/dL mg/dL (70-100) Calcium 7.9 mg/dL L mg/dL (8.5-10.4) Total Bilirubin 2.0 mg/dL H mg/dL (0.1-1.4) Conjugated Bilirubin 1.2 mg/dL H mg/dL (0.0-0.5) Unconjugated Bilirubin 0.8 mg/dL mg/dL (0.0-1.1) AST 82 IU/L H IU/L (14-46) ALT 42 IU/L IU/L (9-52) Alkaline Phosphatase 229 IU/L H IU/L (38-126) Total Protein 5.7 g/dL L g/dL (6.3-8.2) Albumin 2.5 g/dL L g/dL (3.5-5.0) Lipase 222 IU/L IU/L (23-300) Beta HCG, Qual NEGATIVE Urine Color Urine Appearance Urine pH Ur Specific [place] Urine Protein Urine Ketones Urine Blood Urine Nitrate Urine Bilirubin Urine Urobilinogen Ur Leukocyte Esterase Urine RBC Urine WBC Ur Epithelial Cells Urine Bacteria Urine Mucus Urine Glucose Ethyl Alcohol Medications Given: Discontinued Medications Hydromorphone HCl (Dilaudid) 1 mg IVP EDNOW ONE Stop: 04/28/17 23:02 Last Admin: 04/28/17 23:12 Dose: 1 mg Sodium Chloride (Ns) 1,000 mls @ 0 mls/hr IV EDNOW ONE; Wide Open PRN Reason: Protocol Stop: 04/28/17 20:39 Last Admin: 04/28/17 20:50 Dose: 1,000 mls Sodium Chloride (Ns) 1,000 mls @ 0 mls/hr IV ONCE ONE PRN Reason: Wide Open Stop: 04/28/17 23:03 Last Admin: 04/28/17 23:11 Dose: 1,000 mls Departure - Departure Disposition: [facility] Acute Clinical Impression: Alcohol dependence, Ascites, Pancytopenia Condition: Fair
[2017-04-28 23:07] LABS: ETHANOL SERUM 214 mg/dL (0-10)
[2017-04-28] MEDS ORDERED: POTASSIUM CL 20 MEQ TAB PO ONE (23:58)
[2017-04-29] MEDS ORDERED: ONDANSETRON DISINTEGRATING 4 MG TAB PO PRN (00:22)
[2017-04-29] MEDS ORDERED: ACETAMINOPHEN 325 MG TAB PO PRN (00:22)
[2017-04-29] MEDS ORDERED: ONDANSETRON 4 MG/2 ML VIAL IVP PRN (00:22)
[2017-04-29] MEDS ORDERED: LORazepam 1 MG TAB PO PRN (00:30)
[2017-04-29] MEDS: levETIRAcetam 500 MG TAB PO SCH ×3 (01:04→20:20)
[2017-04-29] MEDS: PANTOPRAZOLE SODIUM 40 MG in NS 100 ML IV SCH ×3 (01:04→20:21)
--- NOTE | 2017-04-29 01:10 | GHP ---
[f rep st] HISTORY AND PHYSICAL DATE OF ADMISSION: 04/28/2017 CHIEF COMPLAINT: Found down. HISTORY OF PRESENT ILLNESS: This is a 52-year-old female with cirrhosis due to alcohol, who was found lying on the ground. Amparo called 911. She tells me that the reason she was lying on the ground is that her abdominal pain was so significant. She has a history of alcoholic cirrhosis. She was discharged from this hospital on 11/25/2016, to [facility]. She was doing well there but left. I am unclear as to exactly why. She has been seen in the ED here 3 times since then for complaints of abdominal pain. I also looked in her records in [facility] and found that she was discharged from [facility] on 04/09/2017. At that time, her hemoglobin was 8.3. She had been admitted for ascites. She had about 3-4 L of ascitic fluid tap. She had her diuretics up- titrated. Weight on discharge was about 70 kg. Since that time, she had been staying with her mom but she tells me that she is currently homeless. She could not afford her medications and stopped taking all of them about 2 weeks ago including her Keppra, lactulose as well as her diuretics. She tells me that her abdominal pain got acutely worse about 2-1/2 days ago. It was associated with significant swelling in her abdomen. She tells me that she has had an episode of black stools. In the emergency department, she had a negative Hemoccult. PAST MEDICAL/SURGICAL HISTORY: 1. Alcoholic cirrhosis. 2. Alcohol abuse. 3. Seizure disorder. 4. Umbilical hernia. 5. PTSD. 6. Depression. 7. Pancytopenia. MEDICATIONS: Please see medication reconciliation. ALLERGIES: Codeine. FAMILY HISTORY: Mother is an alcoholic. SOCIAL HISTORY: She is currently homeless. She was drinking alcohol. REVIEW OF SYSTEMS: A 10-point review of systems is conducted and is negative except per HPI. PHYSICAL EXAMINATION: VITAL SIGNS: Blood pressure 136/89, heart rate 113, respiration rate 12, saturating at 99% on 3 L. Temperature is 36.8. GENERAL: The patient is a pleasant female who appears somewhat distressed. She is quite tearful when I am interviewing her. HEENT: Shows her to be normocephalic, atraumatic. CARDIOVASCULAR: She is tachycardic. She is regular. No murmurs, rubs, or gallops. PULMONARY: Lungs clear to auscultation bilaterally. ABDOMEN : Shows her to have significant ascites. She is not tense, however. She is quite diffusely tender to palpation. There are no masses appreciated. SKIN: Shows no rash. : No Rich. NEUROLOGIC: Shows her to be alert and oriented x3. She is moving all extremities. PSYCHIATRIC: Shows her to have a tearful affect. LABORATORY: White count is 2, hemoglobin 7, platelets 55. INR 1.55. Potassium 3.2, bicarb 19. Alcohol level is 214. DATA: 1. I discussed this with Roman David. We will admit to step-down unit. 2. I personally viewed and interpreted her chest x-ray. This shows nothing acute. IMPRESSION AND PLAN: A 52-year-old female who was admitted with abdominal pain , ascites and anemia. 1. Decompensated cirrhosis: This is due to her not taking her diuretics. I think she will need a therapeutic paracentesis, though I am reluctant to order this tonight with a concern of a gastrointestinal bleed. I am also reluctant to diurese her given her tachycardia. I actually think she is intravascularly dry. She will certainly need these ordered, though I would like to see her more stable. For now, we will start her lactulose and follow her clinical course. 2. Acute anemia: Her last hemoglobin was about 3 weeks ago and was 8.3 at [facility]. It is 7.0 today. She tells me she has had melena, though she has a negative Hemoccult here. She does not have any evidence of an esophageal bleed. She has had no varices noted on her endoscopy about a year ago. I do not think she needs an acute EGD. I think it would be more reasonable to follow her hemoglobins, provide her with Protonix for possible alcoholic gastritis. I will go ahead and transfuse her, given her tachycardia. If her hemoglobin drops significantly, I would involve GI, though I think it is reasonable just to monitor at this point. 3. Tachycardia: Unsure if this is hemodynamic or due to infection. My suspicion for SBP is relatively low. She had a negative paracentesis 3 weeks ago. She has chronic abdominal pain. I would send labs when she is ready to get a therapeutic paracentesis. This also may represent alcohol withdrawal. We will follow her for alcohol withdrawal, treat her anemia and follow her tachycardia. 4. Alcohol abuse: She is clearly drinking alcohol again. She understands the consequences of this with her cirrhosis. We will follow her for withdrawal. 5. Goals of care: She is interested in talking to Palliative Care. She would like to be full code at this time though. 6. Homelessness: We will need Case Management assistance. 7. Seizure disorder: I have continued her oral Keppra. /[id number]/MODL MTDD
[2017-04-29] MEDS: THIAMINE HCL 100 MG TAB PO SCH ×2 (01:36→07:39)
[2017-04-29] MEDS: HYDROmorphONE/DILAUDID 1 MG/ML SYR IVP PRN ×4 (01:36→16:30)
[2017-04-29 04:40] LABS: HEMOGLOBIN 8.2 g/dL (12.6-16.3)
[2017-04-29] MEDS: LACTULOSE 20 GM/30 ML UDCUP PO SCH ×3 (05:35→22:22)
[2017-04-29 05:37] LABS: % IMMATURE GRANULYOCYTES 0.5 % (0.0-1.1); ABSOLUTE IMMATURE GRANULOCYTES 0.01 10^3/uL (0.00-0.10); ABSOLUTE NRBC COUNT 0.02 10^3/uL (0-0.01); ADD DIFF? NO; ADD MORPH? NO; ADD SCAN? NO; ATYPICAL LYMPHOCYTE FLAG 40 (0-99); FRAGMENT RBC FLAG 0 (0-99); HEMOGLOBIN 8.2 g/dL (12.6-16.3); LEFT SHIFT FLG 0 (0-99); LIPEMIA HEMOLYSIS FLAG 80 (0-99); MEAN CELL HEMOGLOBIN 25.7 pg (27.9-34.1); MEAN CELL HEMOGLOBIN CONCENTR. 30.4 g/dL (32.4-36.7); MEAN CELL VOLUME 84.6 fL (81.5-99.8); PLATELET CLUMPS FLAG 20 (0-99); PLATELET COUNT 59 10^3/uL (150-400); RED BLOOD CELL COUNT 3.19 10^6/uL (4.18-5.33); RED CELL DISTRIBUTION WIDTH 15.3 % (11.5-15.2)
[2017-04-29 05:58] LABS: INR 1.57 (0.83-1.16); PROTIME(PATIENT) 18.8 SEC (12.0-15.0)
[2017-04-29 06:04] LABS: ALANINE AMINOTRANSFERASE 41 IU/L (9-52); ALBUMIN 2.5 g/dL (3.5-5.0); ALKALINE PHOSPHATASE 212 IU/L (38-126); ANION GAP 10 mEq/L (8-16); ASPARTATE AMINOTRANSFERASE 84 IU/L (14-46); BILIRUBIN,TOTAL 3.1 mg/dL (0.1-1.4); CALCIUM 7.5 mg/dL (8.5-10.4); CARBON DIOXIDE 19 mEq/l (22-31); CHLORIDE 115 mEq/L (97-110); CREATININE 0.6 mg/dL (0.6-1.0); GLOMERULAR FILTRATION RATE > 60; GLUCOSE 77 mg/dL (70-100); MAGNESIUM 1.6 mg/dL (1.6-2.3); POTASSIUM 3.5 mEq/L (3.5-5.2); SODIUM 144 mEq/L (134-144); TOTAL PROTEIN 5.9 g/dL (6.3-8.2)
[2017-04-29 06:12] LABS: BILIRUBIN-CONJUGATED 1.6 mg/dL (0.0-0.5); BILIRUBIN-UNCONJUGATED 1.5 mg/dL (0.0-1.1)
[2017-04-29 08:27] LABS: HEMATOCRIT 26.9 % (38.0-47.0); HEMOGLOBIN 8.2 g/dL (12.6-16.3)
[2017-04-29] MEDS ORDERED: LACTULOSE 20 GM/30 ML UDCUP PO SCH (09:00)
[2017-04-29] MEDS: oxyCODONE IR 5 MG TAB PO PRN ×3 (10:24→20:20)
[2017-04-29] MEDS ORDERED: ALBUMIN 25% 200 ML IV ONE ×2 (12:11→15:30)
[2017-04-29] MEDS ORDERED: LIDOCAINE 1% 300 MG/30 ML SDV ONE (12:45)
[2017-04-29 16:15] LABS: GLUCOSE, PERITONEAL FLUID 73 mg/dL (55-113)
--- NOTE | 2017-04-29 17:10 | PDPCPN ---
Palliative Care Progress Note Assessment/Plan: Referring provider: Dr Garcia Reason for consult: Complex medical decision making Symptom control HPI: Mae Ardon is a 52 yo female with PMH cirrhosis, ETOH abuse, PTSD and seizures found down on the street and admitted to the hospital. On admission with acute on chronic ascites as well as high ammonia level 57. Hx of non compliance with continued alcohol abuse. Recent admission at OSH 04/2017 discharge after paracentesis. This is her 6th trip to our ED this year. Known ESLD with previous palliative care consult. Palliative care consulted for complex medical decision making. Spoke with Mae this afternoon. conversation was very limited due to her extreme lethargy and fatigue. Discussed her medical status and she said she hoped for a liver transplant but discussed this was not possible. She feels like she wants to get sober but doesn't know how and doesn't have help. We tried to talk about end of life goals, code status, as well as her quality of life but was very limited due to fatigue. Assessment: Physical: - Pain: abd pain- sharp shooting pains in bilateral abdomen - on oxy IR and dilaudid PRN - weakness/fatigue - getting lactulose for high ammonia - nursing support Emotional/psychological: Hx of PTSD: support as needed Advanced Care Planning: Is patient decisional?: Yes but very fatigued Code Status: Full MD POA: Son Pasha is MDPOA Plan: PC will continue to follow and address goals of care as able. 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 15 grand children. Son and daughter are local. Medication list reviewed ROS: General: fatigue, weakness ENT: negative Resp: negative GI: abdominal pain, ascites : negative MS: negative Skin: negative Neuro: negative Psych: hx of PTSD Functional assessment: PPS: 40% Functional status: needs some assistance with ADLs Vital Signs Temp Pulse Resp BP Pulse Ox 36.5 C 105 H 20 113/79 97 04/29/17 16:00 04/29/17 16:00 04/29/17 16:00 04/29/17 16:00 04/29/17 16:00 Laboratory Results 04/29/17 08:20 04/29/17 05:15 04/28/17 04/29/17 04/30/17 05:59 05:59 05:59 Intake Total 2551 Output Total 110 10 Balance 2441 -10 PT 18.8 SEC (12.0-15.0) H 04/29/17 05:15 INR 1.57 (0.83-1.16) H 04/29/17 05:15 Physical Exam - Physical Exam General Appearance: no apparent distress, other (lethargic) Respiratory: No respiratory distress, No accessory muscle use Skin: warm/dry, jaundice Extremities: pedal edema Neuro/Psych: other (oriented but very lethargic and falls asleep easily ) ICD10 Worksheet Patient Problems: Problems Problem Status Onset Alcohol dependence Acute Ascites Acute Palliative care encounter Acute Pancytopenia Acute Abdominal pain Acute Alcohol abuse Acute Alcohol intoxication Acute Alcohol use Acute Alcoholic cirrhosis of liver with ascites Acute Delirium tremens Acute Hematochezia Acute SBP (spontaneous bacterial peritonitis) Acute - ICD10 Problem Qualifiers (1) Palliative care encounter
--- NOTE | 2017-04-29 17:29 | HOSPPROG ---
Hospitalist Progress Note Assessment/Plan: 52 yo F with PMH of ESLD 2/2 ETOH and hep C with poor medication compliance and continued use of alcohol presenting with decompensated cirrhosis # decompensated ESLD: presenting with severe ascites and AMS 2/2 hepatic encephalopathy in the setting of continued etoh abuse and medication non compliance. Her liver disease is also complicated by anemia, thrombocytopenia, coagulopathy. At this time will plan for both diagnostic and therapeutic paracentesis with albumin, lactulose and rifaximin. # etoh abuse: patient states she has been in remission in the past but started drinking again due to life stressors etc--attempted to discuss with her at length that drinking is likely to end her life if she does not quit but she continues to fall asleep during this conversation. Continue on ciwa, stressing importance of cessation. CM involved. # acute hepatic encephalopathy: found down and on evaluation today continues to fall asleep and having difficulty maintaining awareness for more than a few moments, lactulose and rifaximin as above. # abdominal pain: with tense ascites on exam and likely due to same, consideration for SBP but will get paracentesis today prior to initiation of abx as she does not appear clinically infected # anemia/thrombocytopenia: chronic and appears stable, will continue to trend # IP status, will need > 48 hours stay for eval/mgmt of above Patient new to my care. Old records reviewed and summarized as above. Care plan reviewed with Dr. Alfred and multidisciplinary care team on rounds. Subjective: no acute overnight events, somnolent, continues to complain of abdominal pain when awake but falling asleep in mid sentance Objective: Vital Signs Temp Pulse Resp BP Pulse Ox 36.5 C 105 H 20 113/79 97 04/29/17 16:00 04/29/17 16:00 04/29/17 16:00 04/29/17 16:00 04/29/17 16:00 Laboratory Results 04/29/17 08:20 04/29/17 05:15 04/28/17 04/29/17 04/30/17 05:59 05:59 05:59 Intake Total 2551 Output Total 110 10 Balance 2441 -10 PT 18.8 SEC (12.0-15.0) H 04/29/17 05:15 INR 1.57 (0.83-1.16) H 04/29/17 05:15 chronically ill appearing, disheveled poor dentition scleral icterus rrr mildly tachy cta but decreased at bases distended, tense, ttp diffusely, bs present ble edema warm dry somnolent, having difficulty following commands or answering questions ICD10 Worksheet Patient Problems: Problems Problem Status Onset Ascites Acute Abdominal pain Acute Alcohol intoxication Acute Alcohol abuse Acute SBP (spontaneous bacterial peritonitis) Acute Alcoholic cirrhosis of liver with ascites Acute Pancytopenia Acute Alcohol use Acute Hematochezia Acute Delirium tremens Acute Alcohol dependence Acute Palliative care encounter Acute
[2017-04-29] MEDS ORDERED: hydrOXYzine HCL 25 MG TAB PO PRN (17:33)
[2017-04-29] MEDS: RIFAXIMIN 550 MG TAB PO SCH (20:20)
[2017-04-29] MEDS: MELATONIN 3 MG TAB PO SCH (20:20)
[2017-04-30] MEDS: oxyCODONE IR 5 MG TAB PO PRN ×3 (04:21→23:00)
[2017-04-30] MEDS: LACTULOSE 20 GM/30 ML UDCUP PO SCH ×3 (05:43→22:54)
[2017-04-30 06:08] LABS: % IMMATURE GRANULYOCYTES 0.4 % (0.0-1.1); ABSOLUTE IMMATURE GRANULOCYTES 0.01 10^3/uL (0.00-0.10); ADD DIFF? NO; ADD MORPH? NO; ADD SCAN? NO; ATYPICAL LYMPHOCYTE FLAG 50 (0-99); FRAGMENT RBC FLAG 0 (0-99); HEMATOCRIT 28.3 % (38.0-47.0); HEMOGLOBIN 8.3 g/dL (12.6-16.3); LEFT SHIFT FLG 10 (0-99); LIPEMIA HEMOLYSIS FLAG 70 (0-99); MEAN CELL HEMOGLOBIN 25.6 pg (27.9-34.1); MEAN CELL HEMOGLOBIN CONCENTR. 29.3 g/dL (32.4-36.7); MEAN CELL VOLUME 87.3 fL (81.5-99.8); MEAN PLATELET VOLUME 11.8 fL (8.7-11.7); PLATELET CLUMPS FLAG 10 (0-99); PLATELET COUNT 50 10^3/uL (150-400); RED BLOOD CELL COUNT 3.24 10^6/uL (4.18-5.33); RED CELL DISTRIBUTION WIDTH 15.7 % (11.5-15.2)
[2017-04-30 06:55] LABS: ANION GAP 11 mEq/L (8-16); CALCIUM 8.1 mg/dL (8.5-10.4); CARBON DIOXIDE 18 mEq/l (22-31); CHLORIDE 108 mEq/L (97-110); CREATININE 0.6 mg/dL (0.6-1.0); GLOMERULAR FILTRATION RATE > 60; GLUCOSE 124 mg/dL (70-100); MAGNESIUM 1.7 mg/dL (1.6-2.3); POTASSIUM 3.8 mEq/L (3.5-5.2); SODIUM 137 mEq/L (134-144)
[2017-04-30] MEDS: levETIRAcetam 500 MG TAB PO SCH ×2 (07:54→22:47)
[2017-04-30] MEDS: MULTIVITAMINS 1 EACH TAB PO SCH (07:54)
[2017-04-30] MEDS: SENNOSIDES/DOCUSATE SODIUM TAB PO SCH (07:54)
[2017-04-30] MEDS: FOLIC ACID 1 MG TAB PO SCH (07:58)
[2017-04-30] MEDS: CITALOPRAM 20 MG TAB PO SCH (07:58)
[2017-04-30] MEDS: PANTOPRAZOLE SODIUM 40 MG in NS 100 ML IV SCH (07:58)
[2017-04-30] MEDS: THIAMINE HCL 100 MG TAB PO SCH (07:58)
[2017-04-30] MEDS ORDERED: CITALOPRAM HYDROBROMIDE 20 MG PO SCH (09:00)
[2017-04-30] MEDS ORDERED: NON-FORMULARY NEW DRUG (Omeprazole [Prilosec 20 Mg] 20 MG) PO SCH (09:00)
--- NOTE | 2017-04-30 14:41 | GCON ---
[f rep st] CONSULTATION PULMONARY CRITICAL CARE CONSULTATION DATE OF CONSULTATION: 04/30/2017 REASON FOR CONSULTATION: Intensive care unit evaluation and management of end-stage liver disease. HISTORY: The patient is a 52-year-old chronic alcoholic, who was admitted on April 28. She was found down. Blood alcohol was positive. Her abnormal mental status was felt to be a combination of hepatic encephalopathy, alcohol, and underlying medical problems. She has had numerous evaluations in the emergency department, and occasionally as an inpatient, in 2015 and 2016. She has known end -stage liver disease and ascites. She was recently at [facility], and had a paracentesis d one there for 3 or 4 L of ascitic fluid. The patient was living with her mother. However, she is n ow on the streets and is homeless. Apparently, she recently stopped taking lactulose, diuretics, Ke ppra, and other medications that she has chronically been on. She is anorexic. She has not had any nausea or vomiting. She denies hematemesis or bleeding per re ctum. PAST MEDICAL HISTORY: Chronic alcohol abuse, cirrhosis, history of seizures, PTSD, depression. SOCIAL HISTORY: The patient is apparently homeless, most recently living with her mother. Chronic ongoing alcohol abuse is present. Tobacco is negative. FAMILY HISTORY: Positive for alcoholism. DRUG ALLERGIES: Codeine. REVIEW OF SYSTEMS: She denies known heart disease. She does have abdominal pain that is felt to be , in part, secondary to mechanical and related to her ascites. There is a history of edema. No his tory of thromboembolic disease. 10-point review of systems is otherwise negative. PHYSICAL EXAMINATION: GENERAL APPEARANCE: Reveals a small woman with very protuberant abdomen. DEB SIGNS: Blood pressure is 135/90, heart rate 105, with sinus rhythm on the monitor. Respiratory rate is 12 to 14. On 2 L saturations are in the high 90s. She is afebrile. HEENT: Unremarkable for lymphadenopathy or thyromegaly. Mucous membranes are somewhat dry. NECK: Jugular venous press ure is elevated. CHEST: Clear anteriorly. Excursions and breath sounds are quite limited, especia lly at the bases, with a few rales present. HEART: Tachycardic. There is a soft systolic murmur. No obvious gallops. P2 appears to be modestly increased. ABDOMEN: Protuberant. Ascites is prese nt. Organomegaly is difficult to assess. There is mild tenderness to palpation. EXTREMITIES: Pos itive for edema. NEUROLOGIC: Notable for global weakness, nonfocal. She is oriented to person and place, but not to day and date. There is no significant tremor. DATABASE: Chest x-ray on admission showed hypoventilatory changes. Paracentesis was performed. Approximately 4 L were removed. G stain is negative. Cultures are pen ding. White blood cell count is 2300, hematocrit 28.3, platelets are 50,000. INR on admission was 1.86. Basic metabolic panel is within normal limits, with the exception of a low CO2 at 18. Anion gap is 11. Calcium is 8.1. Phosphorus 2.5. Magnesium 1.7. Total bilirubin is 3.1, AST is 84, wi th an ALT of 41. Ammonia was 57 on admission. Albumin is 2.5. ASSESSMENT: 1. Altered mental status, found down. This is multifactorial and secondary to acute alcohol intoxi cation, as well has hepatic encephalopathy. Other issues may have contributed, as well. There is n o indication that she had an acute seizure. 2. Chronic alcohol abuse. 3. Cirrhosis, end-stage liver disease, with elevated ammonia and INR. There is no evidence of acti ve bleeding or a variceal bleed, or other acute issues. 4. Pancytopenia secondary to chronic alcohol abuse and splenomegaly. 5. Infectious Disease: No issues identified. 6. DVT prophylaxis: Sequential compression devices. Heparin and related compounds are contraindic ated currently secondary to her low platelet count. 7. Anemia. This is chronic. There is no evidence of a variceal bleed, as she has had in the past, or other bleeding sources. Blood was given on admission. PLAN AND RECOMMENDATIONS: The patient will be restarted on her appropriate outpatient medications, which she has not recently been taking. These will include lactulose, rifaximin, spironolactone, an d furosemide. Medications for chronic depression will be continued, and she will be restarted on Ke ppra. Mental status and hemodynamics will be followed. Results of her paracentesis will be awaited . There is no evidence of acute spontaneous bacterial peritonitis. We will begin to talk about dis position early on. This may be difficult to arrange secondary to her homelessness, chronic alcohol abuse, etc. Further plans and recommendations will be made based on her progress over the next 12 to 24 hours. /[id number]/MODL
--- NOTE | 2017-04-30 15:31 | HOSPPROG ---
Hospitalist Progress Note Assessment/Plan: 52 yo F with PMH of ESLD 2/2 ETOH and hep C with poor medication compliance and continued use of alcohol presenting with decompensated cirrhosis # decompensated ESLD: presenting with severe ascites and AMS 2/2 hepatic encephalopathy in the setting of continued etoh abuse and medication non compliance. Her liver disease is also complicated by anemia, thrombocytopenia, coagulopathy. s/p paracentesis with cultures pending but no e/o SBP by cell count. # etoh abuse: patient states she has been in remission in the past but started drinking again due to life stressors etc. She seems to lack insight into her condition and how it is affected by her drinking. # acute hepatic encephalopathy: found down and on evaluation continues to be somnolent and having difficulty maintaining awareness for more than a few moments, ammonia level elevated, continue lactulose and rifaximin . # abdominal pain: with tense ascites on exam initially and likely 2/2 same, s/p paracentesis and improved # anemia/thrombocytopenia: chronic and appears stable, will continue to trend # IP status, will need > 48 hours stay for eval/mgmt of above FC: palliative involved and patient would likely be a good candidate for hospice but so far these discussions have been limited, will continue to attempt conversation as her mental status improves Care plan reviewed with Dr. Alfred and multidisciplinary care team on rounds. Subjective: no significant overnight events, patient is currently somnolent, abdominal pain seems improved s/p tap Objective: Vital Signs Temp Pulse Resp BP Pulse Ox 36.9 C 112 H 10 L 140/79 H 97 04/30/17 11:48 04/30/17 11:48 04/30/17 11:48 04/30/17 11:48 04/30/17 11:48 Microbiology 04/29/17 12:10 Gram Stain - Final Peritoneal Fluid - Aspirate Laboratory Results 04/30/17 05:57 04/30/17 05:57 04/29/17 04/30/17 05/01/17 05:59 05:59 05:59 Intake Total 2551 1150 500 Output Total 110 135 Balance 2441 1015 500 PT 18.8 SEC (12.0-15.0) H 04/29/17 05:15 INR 1.57 (0.83-1.16) H 04/29/17 05:15 chronically ill appearing, disheveled poor dentition scleral icterus rrr mildly tachy cta but decreased at bases distended, minimal ttp, bs present ble edema warm dry somnolent, having difficulty following commands or answering questions ICD10 Worksheet Patient Problems: Problems Problem Status Onset Alcohol dependence Acute Ascites Acute Palliative care encounter Acute Pancytopenia Acute Abdominal pain Acute Alcohol abuse Acute Alcohol intoxication Acute Alcohol use Acute Alcoholic cirrhosis of liver with ascites Acute Delirium tremens Acute Hematochezia Acute SBP (spontaneous bacterial peritonitis) Acute
[2017-04-30] MEDS ORDERED: cefTRIAXone 2 GM in D5W 50 ML IV ONE (16:20)
[2017-04-30] MEDS ORDERED: NS 500 ML IV ONE (16:23)
[2017-04-30] MEDS: RIFAXIMIN 550 MG TAB PO SCH ×2 (18:39→22:56)
[2017-04-30] MEDS ORDERED: NS 1,000 ML IV ONE ×2 (19:19→19:21)
[2017-04-30] MEDS ORDERED: ERTAPENEM 1 GM in NS 100 ML IV SCH (19:30)
[2017-04-30 20:35] LABS: ABSOLUTE NRBC COUNT 0.05 10^3/uL (0-0.01); ADD DIFF? YES; ADD MORPH? YES; ATYPICAL LYMPHOCYTE FLAG 0 (0-99); FRAGMENT RBC FLAG 0 (0-99); HEMATOCRIT 25.3 % (38.0-47.0); HEMOGLOBIN 7.6 g/dL (12.6-16.3); LIPEMIA HEMOLYSIS FLAG 80 (0-99); MEAN CELL HEMOGLOBIN 25.9 pg (27.9-34.1); MEAN CELL VOLUME 86.1 fL (81.5-99.8); MEAN PLATELET VOLUME 10.6 fL (8.7-11.7); PLATELET CLUMPS FLAG 10 (0-99); RED BLOOD CELL COUNT 2.94 10^6/uL (4.18-5.33); RED CELL DISTRIBUTION WIDTH 15.5 % (11.5-15.2)
[2017-04-30 20:37] LABS: ALANINE AMINOTRANSFERASE 36 IU/L (9-52); ALBUMIN 2.2 g/dL (3.5-5.0); ALKALINE PHOSPHATASE 122 IU/L (38-126); ANION GAP 11 mEq/L (8-16); ASPARTATE AMINOTRANSFERASE 75 IU/L (14-46); BILIRUBIN,TOTAL 3.4 mg/dL (0.1-1.4); CALCIUM 7.1 mg/dL (8.5-10.4); CARBON DIOXIDE 15 mEq/l (22-31); CHLORIDE 111 mEq/L (97-110); CREATININE 0.8 mg/dL (0.6-1.0); GLOMERULAR FILTRATION RATE > 60; GLUCOSE 84 mg/dL (70-100); LEFT SHIFT FLG 300 (0-99); NRBC-AUTO% 5.3 % (0.0-0.2); PLATELET COUNT 33 10^3/uL (150-400); POTASSIUM 3.2 mEq/L (3.5-5.2); SODIUM 137 mEq/L (134-144); TOTAL PROTEIN 4.9 g/dL (6.3-8.2)
[2017-04-30 20:40] LABS: INR 2.44 (0.83-1.16); PROTIME(PATIENT) 26.7 SEC (12.0-15.0)
[2017-04-30 20:46] LABS: BILIRUBIN-CONJUGATED 2.3 mg/dL (0.0-0.5); BILIRUBIN-UNCONJUGATED 1.1 mg/dL (0.0-1.1)
[2017-04-30] MEDS ORDERED: ALBUMIN 25% 50 ML SOLN IV ONE ×2 (20:50→21:24)
[2017-04-30] MEDS ORDERED: NOREPINEPHRINE/NS 4 MG/500 ML BAG IV ONE (20:58)
[2017-04-30] MEDS ORDERED: ALBUMIN 25% 200 ML IV ONE (21:00)
[2017-04-30 21:26] LABS: ADD SCAN? NO; SCAN POSITIVE
[2017-04-30 21:34] LABS: HYPOCHROMIA 1+; MACROCYTES 1+; POLYCHROMASIA 3+
[2017-04-30 21:35] LABS: GIANT PLATELETS PRESENT; LARGE PLATELETS PRESENT; PLATELET ESTIMATE DECREASED (ADEQ); SCHISTOCYTES 1+
[2017-04-30] MEDS ORDERED: PROTOCOL MAGNESIUM 1 DOSE IV PRN (22:24)
[2017-04-30] MEDS ORDERED: PROTOCOL K PHOSPHATE 1 DOSE IV PRN (22:24)
[2017-04-30] MEDS ORDERED: PROTOCOL CALCIUM 1 DOSE IV PRN (22:24)
[2017-04-30] MEDS ORDERED: PROTOCOL POTASSIUM 1 DOSE MISC PRN (22:24)
[2017-04-30] MEDS ORDERED: PHENYLEPHRINE HCL 50 MG in D5W 250 ML IV SCH (22:30)
--- NOTE | 2017-04-30 22:31 | HOSPPROG ---
Hospitalist Progress Note Assessment/Plan: Called by RN for hypotension, fever, tachycardia. Chart reviewed - SBP d/t alpha hemolytic. Abx broadened to invanz. Given 2.3L NS bolus, still hypotensive (70/30). Septic chock. Patient examined - somnolent, abd distended and very TTP. Dr Lee placed central line and a-line. CVP 13 Pressors started per protocol. 45 minutes bedside/floor cc time. Objective: Vital Signs Temp Pulse Resp BP Pulse Ox 36.9 C 120 H 19 85/59 L 93 04/30/17 20:00 04/30/17 21:10 04/30/17 21:10 04/30/17 21:10 04/30/17 21:10 Microbiology 04/29/17 12:10 Gram Stain - Final Peritoneal Fluid - Aspirate Laboratory Results 04/30/17 19:50 04/30/17 19:50 04/29/17 04/30/17 05/01/17 05:59 05:59 05:59 Intake Total 2551 1150 500 Output Total 110 135 250 Balance 2441 1015 250 PT 26.7 SEC (12.0-15.0) H 04/30/17 19:50 INR 2.44 (0.83-1.16) H 04/30/17 19:50 ICD10 Worksheet Patient Problems: Problems Problem Status Onset Ascites Acute Abdominal pain Acute Alcohol intoxication Acute Alcohol abuse Acute SBP (spontaneous bacterial peritonitis) Acute Alcoholic cirrhosis of liver with ascites Acute Pancytopenia Acute Alcohol use Acute Hematochezia Acute Delirium tremens Acute Alcohol dependence Acute Palliative care encounter Acute
[2017-04-30 22:42] LABS: MIXED VENOUS O2 SATURATION 91 % (65-75)
[2017-04-30] MEDS: MELATONIN 3 MG TAB PO SCH (22:45)
[2017-04-30] MEDS: PANTOPRAZOLE SODIUM 40 MG TAB PO SCH (22:45)
[2017-04-30] MEDS: levETIRAcetam 500 MG in NS 100 ML IV SCH (22:49)
[2017-04-30] MEDS: NOREPINEPHRINE/NS 500 ML IV SCH (22:59)
[2017-04-30] MEDS: HYDROCORTISONE 100 MG/2 ML VIAL IVP SCH (22:59)
[2017-04-30] MEDS: VASOPRESSIN/DEXTROSE 250 ML IV SCH (22:59)
[2017-04-30 23:00] LABS: BASE EXCESS -12.8 mEq/L (-2.5-2.5); BICARBONATE 12 mEq/L (22-26); MEASURED OXYGEN SATURATION 93 % (92-95); PCO2 27 mmHg (34-38); PO2 78 mmHg (65-75); TCO2 13 mEq/L (23-27)
[2017-04-30 23:49] LABS: MIXED VENOUS O2 SATURATION 61 % (65-75)
--- NOTE | 2017-05-01 00:01 | POSTOPPROG ---
Post Op Note Date of Operation: 05/01/17 Surgeon: Bud Lee Anesthesia: Local (Specify) Pre-op Diagnosis: sepsis hepatic failure Post-op Diagnosis: same Procedure: R IJ TLC placement, R Radial christopher placement Findings: good draw/flush all ports tlc, good wave form a line Inf/Abcess present in the surg proc area at time of surgery?: No
[2017-05-01] MEDS: PIPERACILLIN/TAZO 4.5 GM/DEX 100 ML IV SCH ×4 (00:57→18:58)
[2017-05-01 00:58] LABS: MIXED VENOUS O2 SATURATION 64 % (65-75)
[2017-05-01] MEDS: NOREPINEPHRINE/NS 500 ML IV SCH ×2 (01:33→05:04)
[2017-05-01] MEDS: VANCOMYCIN HCL/NORMAL SALINE 250 ML IV SCH ×2 (01:51→15:27)
[2017-05-01 01:54] LABS: MIXED VENOUS O2 SATURATION 64 % (65-75)
[2017-05-01 02:45] LABS: MIXED VENOUS O2 SATURATION 61 % (65-75)
[2017-05-01] MEDS: oxyCODONE IR 5 MG TAB PO PRN (03:58)
--- NOTE | 2017-05-01 04:16 | GOP ---
[f rep st] OPERATIVE REPORT DATE OF OPERATION: SURGEON: Bud Lee MD PREOPERATIVE DIAGNOSIS: Sepsis. POSTOPERATIVE DIAGNOSIS: Sepsis. PROCEDURE PERFORMED: Right internal jugular triple-lumen catheter placement and right radial A line placement. FINDINGS: Good placement of the catheters based on waveform and a postprocedural chest x-ray. INDICATIONS: The patient is a 52-year-old woman who was septic in the ICU with a history of acute h epatic failure. She was seen this evening and her white blood cell count went down to 0.94. She phoenix s known coagulopathy with an INR of 2.4 and she has thrombocytopenia with a platelet count of 33. DESCRIPTION OF PROCEDURE: Time-out procedure was performed according to institutional standards. H er neck is prepped with chlorhexidine and draped sterilely. The neck is infused with local anesthet ic and ultrasound guidance was used to cannulate the internal jugular vein. A lot of pressures was noted and a 2nd cannulation site was performed. The wire was then passed and confirmed placement wi th ultrasonography in the transverse lie and then vertical. The path being confirmed, the tract was dilated and a catheter was placed into 17 cm without difficulty. The wire was removed and the cath eter was secured in place. All 3 lines were drawn and flushed adequately. Dressing was applied. H er right wrist was then prepped with chlorhexidine and under ultrasound guidance, a single stick wit h a 20-gauge needle was used to cannulate the radial artery. This was secured in place and attached with a waveform. The patient tolerated both procedures well. SURGEON: Bud Lee MD. COMPLICATIONS: There are no complications. /[id number]/MODL
[2017-05-01 04:56] LABS: MIXED VENOUS O2 SATURATION 69 % (65-75)
--- NOTE | 2017-05-01 06:54 | SOAPPROG ---
SOAP Progress Note Assessment/Plan: Assessment/Plan: RIJ line dislodged attempted line over wire with access going crainally Multiple attempts at new line placement were not successful as the wire would not pass into the central circulation despiteconfirmation with ultrasound of successful vein cannulation D/W Dr Shaw will attempt wire manipulation under fluoro today given central hypertension and thrombocytopenia. 05/01/17 06:51 Objective: Vital Signs Temp Pulse Resp BP Pulse Ox 37.7 C 114 H 19 75/42 L 92 05/01/17 04:00 05/01/17 05:00 05/01/17 05:00 05/01/17 05:00 05/01/17 05:00 Microbiology 04/29/17 12:10 Gram Stain - Final Peritoneal Fluid - Aspirate Laboratory Results 04/30/17 19:50 04/30/17 19:50 04/30/17 05/01/17 05/02/17 05:59 05:59 05:59 Intake Total 1150 3351 Output Total 135 325 Balance 1015 3026 PT 26.7 SEC (12.0-15.0) H 04/30/17 19:50 INR 2.44 (0.83-1.16) H 04/30/17 19:50 ICD10 Worksheet Patient Problems: Problems Problem Status Onset Alcohol dependence Acute Ascites Acute Palliative care encounter Acute Pancytopenia Acute Abdominal pain Acute Alcohol abuse Acute Alcohol intoxication Acute Alcohol use Acute Alcoholic cirrhosis of liver with ascites Acute Delirium tremens Acute Hematochezia Acute SBP (spontaneous bacterial peritonitis) Acute
[2017-05-01 07:10] LABS: MIXED VENOUS O2 SATURATION 63 % (65-75)
[2017-05-01] MEDS: LACTULOSE 20 GM/30 ML UDCUP PO SCH ×2 (07:10→14:34)
[2017-05-01 07:11] LABS: IONIZED CALCIUM 1.04 MMOL/L (1.12-1.30)
[2017-05-01 07:38] LABS: MAGNESIUM 1.2 mg/dL (1.6-2.3); POTASSIUM 3.3 mEq/L (3.5-5.2)
[2017-05-01] MEDS ORDERED: ALTEPLASE 2 MG VIAL IVP PRN (08:00)
[2017-05-01 08:14] LABS: MIXED VENOUS O2 SATURATION 67 % (65-75)
[2017-05-01] MEDS ORDERED: CALCIUM GLUCONATE 50 ML IV ONE (08:39)
[2017-05-01] MEDS ORDERED: MAGNESIUM SULF 2 GM/WATER 50 ML IV ONE (08:39)
[2017-05-01] MEDS: levETIRAcetam 500 MG in NS 100 ML IV SCH ×2 (09:12→22:06)
[2017-05-01] MEDS: POTASSIUM Cl (KCl) 50 ML IV SCH ×3 (09:13→14:30)
[2017-05-01] MEDS: HYDROmorphONE/DILAUDID 1 MG/ML SYR IVP PRN ×3 (09:20→19:59)
[2017-05-01 10:25] LABS: MIXED VENOUS O2 SATURATION 69 % (65-75)
--- NOTE | 2017-05-01 11:16 | HOSPPROG ---
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 # septic shock secondary to SBP - s/p para with ascitic fluid Cx growing strep pneumo. BCx's pending. Broadened to Zosyn last night, on 2 pressors. -wean pressors as able -discussed atbx with ID, ceftriaxone should be adequate coverage for strep, will await sensitivities and narrow in next day or so # decompensated ESLD: presenting with severe ascites and AMS 2/2 hepatic encephalopathy in the setting of continued etoh abuse and medication non compliance. Her liver disease is also complicated by anemia, thrombocytopenia, coagulopathy. # etoh abuse: patient has been in remission in the past but started drinking again due to life stressors etc. Left SNF to drink and was found down. She lacks insight into her condition and how it is affected by her drinking. # acute hepatic encephalopathy: ammonia level elevated, continue lactulose and rifaximin, though pt too encephalopathic to give PO meds at this time -ng tube placed per mineral engineer, but pt developed bleeding (INR 2.4) -afrin recommended, ng tube removed, monitor # anemia/thrombocytopenia: chronic and appears stable, will continue to trend # IP cont inpt FC: palliative involved and patient would be a good candidate for hospice but so far these discussions have been limited, will continue to attempt conversation as her mental status improves. Ethics consult today. Palliative care involved. Prognosis is poor and aggressive care seems futile. Son is MDPOA and will arrive today. Per mom, pt is DNR, waiting for son to confirm. Care plan reviewed with Dr. Alfred and multidisciplinary care team on rounds. Subjective: Pt remains encephalopathic, non-sensical. Febrile overnight, condition worse and atbx broadened to zosyn. Objective: Vital Signs Temp Pulse Resp BP Pulse Ox 37.3 C 107 H 17 99/64 L 93 05/01/17 09:00 05/01/17 09:00 05/01/17 09:00 05/01/17 09:00 05/01/17 09:00 Microbiology 04/29/17 12:10 Gram Stain - Final Peritoneal Fluid - Aspirate Laboratory Results 04/30/17 19:50 05/01/17 07:00 04/30/17 05/01/17 05/02/17 05:59 05:59 05:59 Intake Total 1150 3351 Output Total 135 325 Balance 1015 3026 PT 26.7 SEC (12.0-15.0) H 04/30/17 19:50 INR 2.44 (0.83-1.16) H 04/30/17 19:50 - Physical Exam Constitutional: chronically ill appearing Eyes: PERRL Ears, Nose, Mouth, Throat: moist mucous membranes Cardiovascular: regular rate and rhythym Respiratory: no respiratory distress Gastrointestinal: other (firm, distended, +TTP, hypoactive BS) Skin: warm Psychiatric: encephalopathic ICD10 Worksheet Patient Problems: Problems Problem Status Onset Alcohol dependence Acute Ascites Acute ESBL (extended spectrum beta-lactamase) producing bacteria infection Acute ~08/23 Palliative care encounter Acute Pancytopenia Acute Abdominal pain Acute Alcohol abuse Acute Alcohol intoxication Acute Alcohol use Acute Alcoholic cirrhosis of liver with ascites Acute Delirium tremens Acute Hematochezia Acute SBP (spontaneous bacterial peritonitis) Acute
[2017-05-01 11:24] LABS: MIXED VENOUS O2 SATURATION 68 % (65-75)
[2017-05-01] MEDS: HYDROCORTISONE 100 MG/2 ML VIAL IVP SCH ×2 (11:41→22:39)
[2017-05-01 12:09] LABS: MIXED VENOUS O2 SATURATION 75 % (65-75)
--- NOTE | 2017-05-01 12:21 | ECHO ---
[id number] + + [address] : : [place] [address] : : [phone] + + Adult Echocardiographic Report + -------+ :Name: GALLITO FINLEY LStudy Date: 05/01/2017 11:23 AM : : Hospital Admission Number: [id number] Locati on: 245: :: 1965 Gender: Female Height: 56 in : :Age: 52 yrs Race: [facility] Weight: 181 lb : :Reason For Study: Eval LV Fx : : BSA: 1.7 meter s2 : :History: Sepsis, Hypotension : + -------+ MMode/2D Measurements \T\ Calculations IVSd: 0.65 cm LVIDd: 3.1 cm FS: 38.3 % LVPWd: 0.94 cm LVIDs: 1.9 cm EDV(Teich): 37.9 ml ESV(Teich): 11.4 ml EF(Teich): 70.0 % Normal Measurement Values: + + :LVIDd (3.5-5.7cm) IVSd (0.6-1.1cm) LVPWd (0.6-1.1cm) Aortic Root (2.0-3.7cm)Left Atrium (1.5-4.0cm): :LV Vol(d) (76-115ml) LV Vol(s) (29-48ml) Ejec Fraction (50-65%)PV Blue (0.6- 1.2m/s) TV Blue (0.4-1.0m/s) : :MV E Blue (0.8-1.0m/s)MV A Blue (0.3-1.0m/s)LVOT Blue (0.7-1.2m/s) Asc Ao Blue ( 0.9-1.8m/s) : + + Doppler Measurements \T\ Calculations Ao V2 max: LV V1 max: MR max blue: TR max blue: 138.5 cm/sec 96.3 cm/sec 294.5 cm/sec 270.1 cm/sec Ao max PG: LV V1 max PG: MR max PG: TR max P.7 mmHg 3.7 mmHg 34.7 mmHg 29.2 mmHg RAP systole: 5.0 mmHg RVSP(TR): 34.2 mmHg Left Ventricle The left ventricle is normal in size. There is normal left ventricular wall thickness. The left ventricular ejection fraction is normal. Ejection Fraction = 70%. No regional wall motion abnormalities noted. Right Ventricle The right ventricle is normal in size and function. Atria The left atrial size is normal. Right atrial size is normal. Mitral Valve The mitral valve is normal. There is no evidence of mitral valve prolapse. There is no mitral valve stenosis. There is mild mitral regurgitation. Tricuspid Valve Normal tricuspid valve. Right ventricular systolic pressure is normal. There is moderate tricuspid regurgitation. Aortic Valve The aortic valve is normal in structure and function. There is no aortic stenosis. There is no aortic insufficiency. Pulmonic Valve The pulmonic valve is not well visualized. There is no pulmonic valvular regurgitation. Great Vessels The aortic root is normal size. Pericardium/Pleural There is no pericardial effusion. Conclusion A complete two-dimensional transthoracic echocardiogram was performed (2D, M-mode, Doppler and color flow Doppler). 1. The left ventricle is normal in size. The Ejection Fraction = 70%. 2. The mitral valve is normal in structure. There is mild mitral regurgitation. 3. The aortic valve is normal in structure and function. 4. There is moderate tricuspid regurgitation. 5. Right ventricular systolic pressure estimate is with in normal limits 6. No old studies for comparison. Final Reading Physician: Jose Hernandez MD electronically signed on 05/01/2017 12:20 PM Ordering Physician: Praveen Garcia Performed By: Pasha Roberts, PONCECS
[2017-05-01] MEDS ORDERED: POTASSIUM Cl (KCl) 50 ML IV ONE ×2 (14:15→19:24)
[2017-05-01] MEDS: PANTOPRAZOLE SODIUM 40 MG in NS 100 ML IV SCH (14:22)
[2017-05-01] MEDS: MULTIVITAMINS 1 EACH TAB PO SCH (14:32)
[2017-05-01] MEDS: RIFAXIMIN 550 MG TAB PO SCH (14:32)
[2017-05-01] MEDS: PANTOPRAZOLE SODIUM 40 MG TAB PO SCH (14:32)
[2017-05-01] MEDS: THIAMINE HCL 100 MG TAB PO SCH (14:32)
[2017-05-01] MEDS: CITALOPRAM 20 MG TAB PO SCH (14:34)
[2017-05-01] MEDS: FOLIC ACID 1 MG TAB PO SCH (14:34)
--- NOTE | 2017-05-01 16:01 | PDINTPN ---
Tool Checker Progress Note Assessment/Plan: Assessment: End-stage liver disease, cirrhosis, ascites, elevated INR, etc. Prognosis is guarded and further treatment options are limited and may not be beneficial. Severe sepsis: Hypotensive and febrile overnight. Given intravenous fluids. On pressors. Lactate elevated. MVO2 okay. On broad-spectrum antibiotics now. Possibly related the peritonitis? Abnormal mental status: Multifactorial. Hepatic encephalopathy is present. Medications, especially opiates, may be playing a role. Acute worsening now and obtundation secondary to severe sepsis. Chronic alcohol abuse History of seizures Homelessness Prognosis: Prognosis is extremely poor secondary to her end-stage alcoholic liver disease, ongoing alcohol abuse, encephalopathy, etc. She has had multiple ER visits and was hospitalized recently secondary to her cirrhosis and ascites. My feeling is that this is likely not a survivable process at this time and that care is futile or "non beneficial". She is listed as a full code. We need to have discussions with the family regarding this. Her son Austin is the proxy. The patient herself is unable to participate in the recent palliative care conference and will not be able to the participate now. Austin, with the help of other family members, will have to make informed decisions regarding her care going forward. Plan: Continue supportive care, intravenous fluids, antibiotics, and present medications. We will need to change oral medications to IV where possible as her swallow function is not safe. NG tube to be placed for necessary oral medications such as lactulose and rifaximin. The patient's son and power of dish carrier will be here within the next hour or so. A family conference will be done at that time. Cor status will be readdressed. Palliative/comfort care will be addressed. 55 minutes of critical care time spent with patient thus far. Discussed with nursing, hospitalist, ICU multi disciplinary team and family. Family conference occurred at approximately 6:00 p.m.. Issues were discussed with the patient's son, her power of dish carrier, and with other family members in the room including the patient's mother. They understand the gravity of the situation, the real possibility that she may not survive this admission, and the concepts of non beneficial care.. They decided to make the patient do not resuscitate. They will talk about the possibility of moving to palliative care/ comfort care among themselves in the next 24 hours before making further decisions. Subjective: Unresponsive for me today. Became febrile hypotensive last night, on pressors. Presumed sepsis. Objective: Vital Signs Temp Pulse Resp BP Pulse Ox 37 C 106 H 14 101/51 L 92 05/01/17 15:00 05/01/17 15:00 05/01/17 15:00 05/01/17 15:00 05/01/17 15:00 Microbiology 04/29/17 12:10 Gram Stain - Final Peritoneal Fluid - Aspirate Laboratory Results 04/30/17 19:50 05/01/17 07:00 04/30/17 05/01/17 05/02/17 05:59 05:59 05:59 Intake Total 1150 3351 Output Total 135 325 Balance 1015 3026 PT 26.7 SEC (12.0-15.0) H 04/30/17 19:50 INR 2.44 (0.83-1.16) H 04/30/17 19:50 Laboratory Tests 04/30/17 05/01/17 05/01/17 19:50 07:00 07:10 PT 26.7 H INR 2.44 H APTT 37.0 Mixed VBG O2 Saturation Potassium 3.3 L Ionized Calcium 1.04 L Phosphorus 3.0 Magnesium 1.2 L 05/01/17 11:55 PT INR APTT Mixed VBG O2 Saturation 75 Potassium Ionized Calcium Phosphorus Magnesium Physical Exam - Physical Exam General Appearance: no apparent distress, obtunded, thin, No alert EENT: PERRL/EOMI, other (Nasal cannula is in place at 3 L) Neck: normal inspection Respiratory: lungs clear (Anteriorly), decreased breath sounds (At bases) Cardiac/Chest: tachycardia (Sinus) Abdomen: soft (Distended), distended (Firm), ascites (Reaccumulating), No normal bowel sounds (Decreased, some present), No non-tender Pelvic Exam: other (Rich catheter in place, decreasing urine output) Skin: normal color, warm/dry Extremities: pedal edema Neuro/Psych: no motor/sensory deficits (Nonfocal, weakness present), No cognition abnormalities (Of tended, arouses weekly) ICD10 Worksheet Patient Problems: Problems Problem Status Onset ESBL (extended spectrum beta-lactamase) producing bacteria infection Acute ~08/23 Ascites Acute Abdominal pain Acute Alcohol intoxication Acute Alcohol abuse Acute SBP (spontaneous bacterial peritonitis) Acute Alcoholic cirrhosis of liver with ascites Acute Pancytopenia Acute Alcohol use Acute Hematochezia Acute Delirium tremens Acute Alcohol dependence Acute Palliative care encounter Acute
[2017-05-01] MEDS: NOREPINEPHRINE BITARTRATE 16 MG in NS 250 ML IV SCH (17:54)
[2017-05-01 18:55] LABS: POTASSIUM 3.8 mEq/L (3.5-5.2)
[2017-05-01] MEDS: VASOPRESSIN/DEXTROSE 250 ML IV SCH (19:44)
[2017-05-02] MEDS: PIPERACILLIN/TAZO 4.5 GM/DEX 100 ML IV SCH ×3 (01:15→12:02)
[2017-05-02] MEDS: HYDROmorphONE/DILAUDID 1 MG/ML SYR IVP PRN (01:19)
[2017-05-02] MEDS: VANCOMYCIN HCL/NORMAL SALINE 250 ML IV SCH ×2 (01:50→15:10)
[2017-05-02 05:43] LABS: IONIZED CALCIUM 1.09 MMOL/L (1.12-1.30)
[2017-05-02 05:53] LABS: ABSOLUTE NRBC COUNT 0.13 10^3/uL (0-0.01); ADD MORPH? NO; ADD SCAN? YES; ATYPICAL LYMPHOCYTE FLAG 0 (0-99); FRAGMENT RBC FLAG 0 (0-99); HEMATOCRIT 26.3 % (38.0-47.0); HEMOGLOBIN 7.8 g/dL (12.6-16.3); LIPEMIA HEMOLYSIS FLAG 70 (0-99); MEAN CELL HEMOGLOBIN 26.2 pg (27.9-34.1); MEAN CELL HEMOGLOBIN CONCENTR. 29.7 g/dL (32.4-36.7); MEAN CELL VOLUME 88.3 fL (81.5-99.8); MEAN PLATELET VOLUME 11.2 fL (8.7-11.7); NRBC-AUTO% 0.9 % (0.0-0.2); PLATELET CLUMPS FLAG 10 (0-99); PLATELET COUNT 73 10^3/uL (150-400); RED BLOOD CELL COUNT 2.98 10^6/uL (4.18-5.33); RED CELL DISTRIBUTION WIDTH 17.2 % (11.5-15.2)
[2017-05-02 05:56] LABS: LEFT SHIFT FLG 300 (0-99)
[2017-05-02 06:01] LABS: ALANINE AMINOTRANSFERASE 55 IU/L (9-52); ALBUMIN 2.8 g/dL (3.5-5.0); ALKALINE PHOSPHATASE 43 IU/L (38-126); ANION GAP 14 mEq/L (8-16); ASPARTATE AMINOTRANSFERASE 127 IU/L (14-46); BILIRUBIN,TOTAL 6.1 mg/dL (0.1-1.4); CARBON DIOXIDE 12 mEq/l (22-31); CHLORIDE 113 mEq/L (97-110); CREATININE 1.2 mg/dL (0.6-1.0); GLOMERULAR FILTRATION RATE 47; GLUCOSE 58 mg/dL (70-100); MAGNESIUM 1.7 mg/dL (1.6-2.3); POTASSIUM 4.2 mEq/L (3.5-5.2); SODIUM 139 mEq/L (134-144); TOTAL PROTEIN 5.6 g/dL (6.3-8.2)
[2017-05-02 06:08] LABS: BILIRUBIN-CONJUGATED 4.9 mg/dL (0.0-0.5); BILIRUBIN-UNCONJUGATED 1.2 mg/dL (0.0-1.1)
[2017-05-02] MEDS ORDERED: MAGNESIUM SULF 1 GM/DEXTROSE 100 ML IV ONE (06:13)
[2017-05-02] MEDS ORDERED: CALCIUM GLUCONATE 50 ML IV ONE (06:14)
[2017-05-02 06:19] LABS: ADD DIFF? YES; SCAN POSITIVE
[2017-05-02 06:26] LABS: HYPOCHROMIA 1+; MACROCYTES 1+; PLATELET ESTIMATE DECREASED (ADEQ); POLYCHROMASIA 1+; TOXIC VACUOLIZATION PRESENT
[2017-05-02] MEDS ORDERED: D50W 25 GM/50 ML SYR IVP PRN (06:32)
[2017-05-02] MEDS: VASOPRESSIN/DEXTROSE 250 ML IV SCH (06:39)
[2017-05-02] MEDS ORDERED: D10W 250 ML PRN HYPOGLYCEMIA IV (07:00)
[2017-05-02] MEDS: NOREPINEPHRINE BITARTRATE 16 MG in NS 250 ML IV SCH (07:39)
[2017-05-02] MEDS ORDERED: LORazepam 2 MG/ML INJ ONE (08:25)
[2017-05-02] MEDS: LORazepam 2 MG/ML INJ IVP PRN ×2 (08:30→12:30)
[2017-05-02] MEDS ORDERED: HYDROmorphONE/DILAUDID 1 MG/ML SYR IVP PRN (08:30)
[2017-05-02] MEDS ORDERED: THIAMINE HCL 100 MG TAB PO SCH (09:00)
[2017-05-02] MEDS: levETIRAcetam 500 MG in NS 100 ML IV SCH (09:08)
[2017-05-02] MEDS: PANTOPRAZOLE SODIUM 40 MG in NS 100 ML IV SCH (09:36)
[2017-05-02] MEDS: HYDROCORTISONE 100 MG/2 ML VIAL IVP SCH (10:13)
--- NOTE | 2017-05-02 12:23 | PDINTPN ---
Guidance Secretary Progress Note Assessment/Plan: Assessment: End-stage liver disease, cirrhosis, ascites, elevated INR, etc. Prognosis is guarded and further treatment options are limited and may not be beneficial. Severe sepsis: Remains hypotensive, on 2 pressors. On broad-spectrum antibiotics. Strep Pn in ascitic fluid. She is fluid resuscitated. CVP is high, mid 20s. EF 70%. On hydrocortisone. Nutrition: None currently. We were unable to place a NG tube yesterday secondary to nasal bleeding and the risk of causing a varices telescope repairer bleed. She is also not getting oral medications including rifaximin and lactulose. Abnormal mental status: Multifactorial. Hepatic encephalopathy is present. Medications, especially opiates and Ativan, may be playing a role. Acute worsening now and increased obtundation secondary to severe sepsis. Chronic alcohol abuse History of seizures. On Keppra. Homelessness Prognosis: Prognosis is extremely poor secondary to her underling end-stage alcoholic liver disease, ongoing alcohol abuse, encephalopathy, and now severe sepsis with hypotension, declining renal fxn, etc. She is DNr as of last night. She has had multiple ER visits and was hospitalized recently secondary to her cirrhosis and ascites. My feeling is that this is likely not a survivable process at this time and that care is futile or "non beneficial". We need to have further discussions with the family regarding this. Her son Austin is the proxy. The patient herself is unable to participate in the recent palliative care conference and cannot participate now. Austin, with the help of other family members, will have to make informed decisions regarding her care going forward. Plan: Continue supportive care, intravenous fluids, antibiotics, and present medications. 45 minutes of critical care time spent with patient this AM. Discussed with nursing, hospitalist, RT, ICU multi disciplinary team, and the patient's mother and aunt. For a family conference later today for further decision making. A family conference occurred in the early afternoon. The patient's son and medical proxy was there, as well as multiple other family members. After her further discussions with all the family they felt it was best to change care directions to comfort care only. I agree with this decision. The patient's son will let us know the exact timing of going to comfort care. Orders were placed. Subjective: Obtunded, arouses weekly. Oriented x2 at best. Uncomfortable. Objective: Vital Signs Temp Pulse Resp BP Pulse Ox 37.2 C 104 H 17 111/60 90 L 05/02/17 12:00 05/02/17 12:00 05/02/17 12:00 05/02/17 12:00 05/02/17 12:00 Microbiology 04/29/17 12:10 Gram Stain - Final Peritoneal Fluid - Aspirate Body Fluid Culture - Final Streptococcus Pneumoniae Laboratory Results 05/02/17 05:35 05/02/17 05:35 05/01/17 05/02/17 05/03/17 05:59 05:59 05:59 Intake Total 3351 2674 Output Total 325 300 Balance 3026 2374 PT 26.7 SEC (12.0-15.0) H 04/30/17 19:50 INR 2.44 (0.83-1.16) H 04/30/17 19:50 Laboratory Tests 05/02/17 05:35 Calcium 7.0 L Phosphorus 3.5 Magnesium 1.7 Total Bilirubin 6.1 H D AST 127 H ALT 55 H Albumin 2.8 L Physical Exam - Physical Exam General Appearance: obtunded EENT: scleral icterus (R), scleral icterus (L), other ( Nasal cannula at 4 L) Neck: normal inspection ( jugular venous distension present) Respiratory: lungs clear ( anteriorly), decreased breath sounds ( at baseline, shallow respiratory effort) Cardiac/Chest: tachycardia ( sinus) Abdomen: distended, ascites, No normal bowel sounds ( decreased), No non-tender , No soft Pelvic Exam: other ( Rich catheter in place. Decreased urine output) Skin: normal color, warm/dry Extremities: pedal edema Neuro/Psych: cognition abnormalities (Obtunded, arouses weakly at times, oriented possibly x2.), No no motor/sensory deficits ( global weakness) ICD10 Worksheet Patient Problems: Problems Problem Status Onset Abdominal pain Acute Alcohol abuse Acute Alcohol dependence Acute Alcohol intoxication Acute Alcohol use Acute Alcoholic cirrhosis of liver with ascites Acute Ascites Acute Delirium tremens Acute ESBL (extended spectrum beta-lactamase) producing bacteria infection Acute ~08/23 Hematochezia Acute Palliative care encounter Acute Pancytopenia Acute SBP (spontaneous bacterial peritonitis) Acute
--- NOTE | 2017-05-02 13:51 | HOSPPROG ---
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 # septic shock secondary to peritonitis - ?SBP though I've also considered a perforated viscous given her worsening exam and clinical condition. Pt is a poor surgical candidate and family is moving towards comfort care. s/p para with ascitic fluid Cx growing strep pneumo. BCx's NGTD. Requiring 2 pressors. Her condition is deteriorating and prognosis is poor. -if we do not pursue comfort measures, she likely warrants CT abd though she is not a good candidate for surgery -wean pressors as able -cont zosyn # decompensated ESLD: MELD 25, 76% mortality, though much higher mortality risk given above. Presented with severe ascites and AMS 2/2 hepatic encephalopathy in the setting of continued etoh abuse and medication non compliance. Her liver disease is also complicated by anemia, thrombocytopenia, coagulopathy with INR of 2.44. # etoh abuse: patient has been in remission in the past but started drinking again due to life stressors etc. Left SNF to drink and was found down. She lacks insight into her condition. # acute hepatic encephalopathy: ammonia level elevated, continue lactulose and rifaximin, though pt too encephalopathic to give PO meds at this time. She bled with NG tube attempt yesterday, which was aborted. # anemia/thrombocytopenia: chronic and appears stable, will continue to trend # Dispo: cont inpt # DNR. Palliative care involved. Prognosis is poor and aggressive care seems futile. Son is MDPOA. Family conference planned today to discuss goals of care and possibly transition to comfort / end of life care. Care plan reviewed with Dr. Alfred and multidisciplinary care team on rounds. Subjective: Pt required ativan overnight due to severe agitation, now somnolent. Has refused oral care. Not taking po. Objective: Vital Signs Temp Pulse Resp BP Pulse Ox 37.3 C 103 H 16 103/58 L 93 05/02/17 13:00 05/02/17 13:00 05/02/17 13:00 05/02/17 13:00 05/02/17 13:00 Microbiology 04/29/17 12:10 Gram Stain - Final Peritoneal Fluid - Aspirate Body Fluid Culture - Final Streptococcus Pneumoniae Laboratory Results 05/02/17 05:35 05/02/17 05:35 05/01/17 05/02/17 05/03/17 05:59 05:59 05:59 Intake Total 3351 2674 Output Total 325 300 Balance 3026 2374 PT 26.7 SEC (12.0-15.0) H 04/30/17 19:50 INR 2.44 (0.83-1.16) H 04/30/17 19:50 - Physical Exam Constitutional: chronically ill appearing Ears, Nose, Mouth, Throat: other (dried blood around mouth) Cardiovascular: regular rate and rhythym Respiratory: no respiratory distress, reduced air movement Gastrointestinal: other (firm, distended, +TTP, +peritoneal signs) Psychiatric: encephalopathic ICD10 Worksheet Patient Problems: Problems Problem Status Onset Alcohol dependence Acute Ascites Acute ESBL (extended spectrum beta-lactamase) producing bacteria infection Acute ~08/23 Palliative care encounter Acute Pancytopenia Acute Abdominal pain Acute Alcohol abuse Acute Alcohol intoxication Acute Alcohol use Acute Alcoholic cirrhosis of liver with ascites Acute Delirium tremens Acute Hematochezia Acute SBP (spontaneous bacterial peritonitis) Acute
[2017-05-02 15:22] VITALS: TEMP 99.3
[2017-05-02] MEDS ORDERED: LORazepam 2 MG/ML INJ IVP PRN (16:33)
[2017-05-02] MEDS ORDERED: GLYCOPYRROLATE 0.2 MG/1 ML VIAL IVP PRN (16:34)
[2017-05-02 19:52] VITALS: BP 81/46; PULSE 112; RESP 24; O2SAT 82
[2017-05-02] MEDS ORDERED: HYDROCORTISONE 100 MG/2 ML VIAL IVP SCH (22:00)
--- NOTE | 2017-05-06 11:00 | GDS ---
[f rep st] DISCHARGE SUMMARY DATE AND TIME OF : May 02, 2017 at 2336. HISTORY: The patient is a 52-year-old female with a history of alcoholic cirrhosis with frequent ho spitalizations for complications related to her alcoholic liver disease who was again admitted to [facility] after being found down on the ground by a passerby. Prior to this hospitalization, she le ft her nursing home facility so she could go drink. She was admitted to the hospital with decompe nsated cirrhosis. HOSPITAL COURSE: The patient was admitted to the step-down unit. It was discovered she has not been compliant with her diuretics and continues to drink alcohol. There was some concern for GI bleeding on arrival given her reports of melanotic stool. She underwent paracentesis. The day following admi ssion, she acutely decompensated with fever, tachycardia and hypotension. She was initially treated with ceftriaxone. Her antibiotics were broadened to Invanz. She was treated aggressively for septic shock with IV fluid boluses. She did undergo a paracentesis and peritoneal fluid grew Streptococcus pneumonia; however, her blood cultures remained negative. Despite aggressive care in the intensive c are unit requiring multiple pressors, the patient's condition continued to deteriorate. She was grav archie ill with a very poor prognosis of surviving this event. Her family gathered. Palliative Care con fernando was obtained. They ultimately all agreed that they wished to withdraw care and this was done on the evening of May 02. The patient peacefully several hours after withdrawal of care at 2336 hours. /[id number]/MODL
== END 2017-05-03 02:30 | disposition expired | DRG 432 ==
LOC: EDUNIT# → F2N 23:50 → UNDODISIN 04-30 17:41
PROVIDERS: ADMIT Student in an Organized Health Care Education/Training Program; ATTEND Student in an Organized Health Care Education/Training Program
PROC: 0W9G3ZZ Drainage of Peritoneal Cavity, Percutaneous Approach (ICD-10-PCS; principal; 2017-04-29)
PROC: 05HM33Z Insertion of Infusion Device into Right Internal Jugular Vein, Percutaneous Approach (ICD-10-PCS; 2017-04-30)
PROC: 02HV33Z Insertion of Infusion Device into Superior Vena Cava, Percutaneous Approach (ICD-10-PCS; 2017-05-01)
DX: K70.31 Alcoholic cirrhosis of liver with ascites (principal); A40.3 Sepsis due to Streptococcus pneumoniae; K65.2 Spontaneous bacterial peritonitis; R65.21 Severe sepsis with septic shock; D61.818 Other pancytopenia; K86.1 Other chronic pancreatitis; F10.229 Alcohol dependence with intoxication, unspecified; Y90.7 Blood alcohol level of 200-239 mg/100 ml; I10 Essential (primary) hypertension; T42.76XA Underdosing of unspecified antiepileptic and sedative-hypnotic drugs, initial encounter; T47.3X6A Underdosing of saline and osmotic laxatives, initial encounter; T50.2X6A Underdosing of carbonic-anhydrase inhibitors, benzothiadiazides and other diuretics, initial encounter; G40.909 Epilepsy, unspecified, not intractable, without status epilepticus; B19.20 Unspecified viral hepatitis C without hepatic coma; Z59.0 Homelessness; Z91.120 Patient's intentional underdosing of medication regimen due to financial hardship; Z87.891 Personal history of nicotine dependence; Z51.5 Encounter for palliative care
CPT/HCPCS: 82947-QW; 92610-GN; 96374; C1751; G0480; J0610; J0696; J1170; J1335; J1953; J2060; J2370; J2543; J3370; J3475; P9016; P9047